=== PATIENT | female | born 1970 | race Caucasian/White ===

== ENCOUNTER 2016-11-16 19:21 | Inpatient (IN) ==
[2016-11-16] MEDS ORDERED: ASPIRIN 325 MG TABLET PO STA (19:41)
[2016-11-16] MEDS ORDERED: METOCLOPRAMIDE 10 MG/2 ML VIAL IV STA (19:41)
[2016-11-16] MEDS ORDERED: PANTOPRAZOLE 40 MG VIAL IV STA (19:41)
[2016-11-16] MEDS ORDERED: ONDANSETRON 4 MG/2 ML VIAL IV STA (19:41)
[2016-11-16] MEDS ORDERED: KETOROLAC 30 MG/1 ML VIAL IV STA (19:41)
--- NOTE | 2016-11-16 19:46 | Emergency Department Note ---
Arrival - Arrival Chief Complaint: Chest Pain Stated Complaint: chest pain ED Nursing Triage Note: C/O Chest pain- stabbing pain under left breast radiating down left arm with left arm numbness. 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 Pt denies SOB/Nausea /Diaphoresis. EKG obtained at time of triage Mode of Arrival: Wheelchair Limitations: No Limitations Source: Patient Time Seen by Provider: 11/16/16 19:41 - History of Present Illness HPI Narrative: This 46-year-old white female presents with complaints of onset of stabbing chest pain under her left breast suddenly while in [employer] across the [place] from the hospital. She denies any shortness of breath, nausea, vomiting , or diaphoresis in association with this. She likewise did not have a previous cardiac history. Of note she is a smoker and has been diagnosed with COPD. She denies any recent chest pain or chest discomfort in the last several days although she has had significant heartburn, belching, and water brash and states she cannot keep anything down for the last 24 hours. This is the third visit in the last month to our ER for the patient with the third different problem. Patient has an extensive medical history but states she has fired all her doctors and does not have anybody in particular she is followed by currently she has seen both Dr. Baker and Jeane in the past. Currently she is very emotional but in no acute medical distress. Onset (ago): hour(s) (Patient presents 1 hour post onset of symptoms) Date of Last Menstrual Period: Hysterectomy Allergies/Adverse Reactions: Allergies Allergy/AdvReac Type Severity Reaction Status Date / Time tapentadol [From Nucynta] AdvReac Severe RASH Verified 10/22/16 12:37 Home Medications: Home Medications Medication Instructions Recorded Confirmed Type Levothyroxine Sodium 75 mcg PO QAM 09/24/14 11/16/16 History Divalproex [Depakote] 1,000 mg PO BID 10/01/14 11/16/16 History Duloxetine HCl [Cymbalta] 60 mg PO QAM 10/01/14 11/16/16 History traZODone [Desyrel] 100 mg PO BEDTIME 10/01/14 11/16/16 History Methocarbamol [Methocarbamol] 750 mg PO TID PRN 04/23/16 11/16/16 History Oxycodone HCl/Acetaminophen 1 tablet PO QID PRN 11/16/16 11/16/16 History [Oxycodone-Acetaminophen 10-325] Review of System - Review of System 12 point system: reviewed and no additional remarkable complaints except as stated - Review of System Constitutional: Present: as per HPI Respiratory: Present: as per HPI Cardiovascular: Present: as per HPI Gastrointestinal: Present: as per HPI Psychiatric: Present: as per HPI Medical,Surgical,& Family Hx - Medical History Cardio: No history of: CHF, Hypertension Psychological: History of: Anxiety Disorders No history of: ADHD, Behavior Problems, Bipolar Disorder, Depression, Previous Suicide Attempt, Schizophrenia Neurology: History of: Seizures (LAST SEIZURE 2 YEARS AGO) HEENT: History of: Eye Problem (READING GLASSES) Endocrine: History of: Thyroid Disorder (thyroid removed 2014) Respiratory: No history of: Asthma, Bronchitis, COPD, Intubation, Obstructive Sleep Apnea , Pneumonia, Lung Cancer Comment Only: Respiratory Problems (SMOKER) Renal: Comment Only: Renal (Kidney) Cancer (L KIDNEY MASS, BIOPSY DONE 02/24/16) Gastrointestinal: History of: Gastrointestinal Cancer (rectal cancer Radiation /Chemo Dr Ching finished chemo July 2015) Musculoskeletal: History of: Amputation, Back/Neck Problems, Musculoskeletal Problems (FX T5?) Hematology: History of: Anemia No history of: Blood Transfusion Reaction Reproductive: History of: Abnormal Pap Smear, Reproductive Cancer (vulva cancer) Other: No history of: Anesthesia Reactions - Surgical History Cardiac Surgeries: Patient Denies: Cardiac Catheterization Thoracic Surgeries: Surgical HX of;: Kidney (Renal Surgery) (L kidney removed ) Patient denies;: Organ Transplant, Lobectomy Neurologic Surgeries: Patient denies: Neurologic Surgery HEENT Surgeries: Surgical HX of: Thyroid Surgery (GOITER NODULES) Patient denies: Eye Surgery, Tonsilectomy & Adenoidectomy Abdominal Surgeries: Surgical HX of: Abdominal Surgery (gallbladder removed 2014 ), Cholecystectomy Patient denies: Splenectomy Reproductive Surgeries: Surgical HX of;: Section, Dilation and Curettage, Gynecologic Surgery (VULVECTOMY), Hysterectomy (PARTIAL), Tubal Ligation Patient denies;: Genitourinary Surgery Orthopedic Surgeries: Surgical HX of;: Implanted Devices, Orthopedic Surgery ( HARWARLE L ANKLE BACK) - Family History Family History: Reports;: Family Diabetes (FATHER), Family Heart Disease (MOTHER ), Family Hypertension (MOTHER, FATHER) Denies;: Family Anesthesia Reaction, Family Cancer, Family Psychiatric Problems, Family Stroke - Social History Smoking Status: Smoker, status unknown Frequency of Alcohol Use: None Type of Drug Use: None Exam Physical Examination: GENERAL: Well developed, well nourished white female in no acute distress. HEENT: Normocephalic. No trauma. Moist mucous membranes. EOMI. PERRLA. ENT NML NECK: Supple. No adenopathy. CARDIAC: Regular. No murmurs. Heart rate 120 CHEST: Clear to auscultation. No respiratory distress. O2 sat 98% ABDOMEN: Soft. Midepigastric tenderness. Hypoactive bowel sounds. EXTREMITIES: No trauma. Normal ROM. No pedal edema. SKIN: No diaphoresis. No rash. NEURO: Alert. Neuro intact no focal deficits. Vital Signs: Vital Signs Temperature 98.6 F 11/16/16 19:29 Pulse Rate 124 H 11/16/16 19:29 Respiratory Rate 18 11/16/16 19:45 Blood Pressure 143/93 11/16/16 19:29 O2 Sat by Pulse Oximetry 98 11/16/16 19:29 Course - Reevaluation(s) Reevaluation #1: Advised patient her symptoms and laboratory support acute pancreatitis. I have advised her hospitalization. Results - Labs CBC & BMP: 11/16/16 20:22 11/16/16 20:22 Labs: I reviewed the lab and noted the low potassium and elevated lipase. - Diagnostic Findings Procedure: Chest x-ray: image reviewed by me, report reviewed by me (Normal chest) Disposition Clinical Impression: Pancreatitis Case discussed with: patient Disposition: Still a Patient Condition: Guarded Time of Disposition: 21:31
[2016-11-16] MEDS ORDERED: PANTOPRAZOLE 40 MG VIAL IV ONE (19:51)
[2016-11-16] MEDS ORDERED: ONDANSETRON 4 MG/2 ML VIAL ONE (19:51)
[2016-11-16] MEDS ORDERED: METOCLOPRAMIDE 10 MG/2 ML VIAL ONE (19:51)
[2016-11-16] MEDS ORDERED: KETOROLAC 30 MG/1 ML VIAL ONE (19:52)
[2016-11-16] MEDS ORDERED: ASPIRIN 325 MG TABLET ONE (19:52)
--- NOTE | 2016-11-16 20:01 | XRay Report ---
XR chest 2V Date: 11/16/2016 7:42 PM History: Chest pain Comparison: 05/07/2016 Technique: PA and lateral chest Findings: The heart is normal in size with stable right subclavian venous access catheter. The lungs and mediastinum are stable in appearance. Post operative findings in the thoracolumbar spine with prior fusion, left abdomen, and left mid humeral amputation. Impression: No acute cardiopulmonary pathology identified. PROCEDURE INTERPRETED AT [facility] DEPARTMENT OF RADIOLOGY Final Report Signed by: Dr. Tanya Pleitez
[2016-11-16 20:30] LABS: Basophils % 0.6 % (0.0-0.8); Eosinophils # 0.2 10*3/uL (0.0-0.87); Eosinophils % 3.1 % (0.00-10.9); Hematocrit 37.2 VOL% (35.7-47.0); Hemoglobin 12.6 GM/DL (12.0-16.0); Immature Granulocytes % 0.3 %; Immature Granulocytes Absolute 0.02 #; Lymphocytes # 1.4 10*3/uL (1.4-4.0); Mean Corpuscular HGB Conc 33.9 GM/DL (32-36); Mean Corpuscular Hemoglobin 33 PG (27-34); Mean Corpuscular Volume 98.7 FL (87-102); Mean Platelet Volume 9.4 FL (9.6-12.0); Monocytes # 0.4 10*3/uL (0.11-0.8); Monocytes % 5.6 % (1.7-12.7); Neutrophils # 5.1 10*3/uL (1.4-7.4); Neutrophils % 71.4 % (38.7-73.9); Platelet Count 309 T/CUMM (130-400); Red Blood Count 3.77 MC/CUMM (3.8-5.5); Red Cell Distribution Width 14.2 % (9.3-17.3); White Blood Count 7.1 T/CUMM (4-12)
[2016-11-16 20:33] LABS: Apearance,Urine CLEAR (Clear); Bilirubin,Urine Negative (Negative); Blood, Urine Negative (Negative); Glucose,Urine (UA) Negative (Negative); Ketones,Urine Negative (Negative); Nitrite,Urine Negative (Negative); Protein,Urine Negative; RBC,Urine <1 /HPF (0-4); Urine Color Yellow (Yellow); Urine Specific Gravity 1.009 (1.001-1.035); Urine Urobilinogen < 2.0 EU/DL (0.2-1.0); WBC,Urine <1 /HPF (0-6)
[2016-11-16] MEDS ORDERED: DICYCLOMINE 20 MG/2 ML AMP IM ONE ×2 (20:43)
[2016-11-16 20:47] LABS: Barbiturates Screen,Urine Negative (Negative); Benzodiazepines Screen,Urine Negative (Negative); Cannabinoid Screen,Urine Negative (Negative); Opiate Screen,Urine Negative (Negative); Phencyclidine Screen,Urine Negative (Negative)
[2016-11-16 20:48] LABS: Alanine Aminotransferase 27 U/L (13-56); Albumin 3.8 G/DL (3.4-5.0); Alkaline Phosphatase 112 U/L (45-117); Aspartate Amino Transferase 16 U/L (0-37); Bilirubin,Total < 0.39 MG/DL (0.2-1.0); Blood Urea Nitrogen 15 MG/DL (7-18); Calcium 9.2 MG/DL (8.5-10.1); Glucose 96 MG/DL (74-106); Osmolality,Calculated 286.8 MOS/KG (273-304); Potassium 3.4 MMOL/L (3.5-5.1); Sodium 144 MMOL/L (136-145)
[2016-11-16 20:50] LABS: Troponin I Only 0.016 NG/ML (0.00-0.045)
[2016-11-16] MEDS ORDERED: SODIUM CHLORIDE 0.9% 1,000 ML IV STA (21:31)
[2016-11-16] MEDS ORDERED: ACETAMINOPHEN 325 MG TABLET PO PRN (21:52)
[2016-11-16] MEDS ORDERED: BISACODYL 5 MG TABLET PO PRN (21:52)
[2016-11-16] MEDS ORDERED: ZALEPLON 5 MG CAPSULE PO PRN (21:52)
[2016-11-16] MEDS ORDERED: METHOCARBAMOL 750 MG TABLET PO PRN (21:59)
[2016-11-16] MEDS ORDERED: oxyCODONE/ACETAMINOPHEN 5-325 MG TABLET PO PRN (21:59)
--- NOTE | 2016-11-16 22:02 | Hospitalist History & Physical ---
Assessment and Plan (1) Dehydration Status: Acute Assessment and plan: IV fluid hydration with lactated Ringer's. Current Visit: Yes (2) Abdominal pain Status: Acute Assessment and plan: Due to pancreatitis. Current Visit: Yes Qualifiers: Abdominal location: epigastric Qualified Code(s): R10.13 - Epigastric pain (3) Pancreatitis, acute Status: Acute Assessment and plan: Consult GI. Pain control. IV fluid hydration. N.p.o. Check lipids. No history of alcohol intake. Status post cholecystectomy. Normal LFTs. Current Visit: Yes Qualifiers: Pancreatitis type: unspecified pancreatitis type (4) History of seizure disorder Status: Chronic Assessment and plan: Continue home medications Current Visit: Yes History of Present Illness Chief complaint: Abdominal/epigastric pain History of present illness: Ms. Rodriguez is a 46 year old female presents with complaints of onset of stabbing chest pain under her left breast suddenly while in [employer] across the street from the hospital. She denies any shortness of breath, nausea, vomiting, or diaphoresis in association with this. She likewise did not have a previous cardiac history. Of note she is a smoker and has been diagnosed with COPD. She denies any recent chest pain or chest discomfort in the last several days although she has had significant heartburn, belching, and water brash and states she cannot keep anything down for the last 24 hours. This is the third visit in the last month to our ER for the patient with similar problem. She is followed by Dr. Baker and Jeane in the past. Currently she is very emotional but in no acute medical distress. She reports her pain is in the upper stomach and left upper quadrant and underneath her left breast. It radiates into her back. She also reports decreased appetite over the last month and some weight loss. She denies any alcohol intake. She reports prior cholecystectomy. She denies any abdominal trauma or any new medications. She is being admitted to the hospital with a diagnosis of pancreatitis. Repeat lipase and triglyceride levels in a.m. Copious IV fluids and a GI consult. The patient's home medications have been reviewed and reconciled. Her is her power of commercial real estate attorney. She is a full code. Home Medications Medication Instructions Recorded Confirmed Type Levothyroxine Sodium 75 mcg PO QAM 09/24/14 11/16/16 History Divalproex [Depakote] 1,000 mg PO BID 10/01/14 11/16/16 History Duloxetine HCl [Cymbalta] 60 mg PO QAM 10/01/14 11/16/16 History traZODone [Desyrel] 100 mg PO BEDTIME 10/01/14 11/16/16 History Methocarbamol [Methocarbamol] 750 mg PO TID PRN 04/23/16 11/16/16 History Oxycodone HCl/Acetaminophen 1 tablet PO QID PRN 11/16/16 11/16/16 History [Oxycodone-Acetaminophen 10-325] Allergies Allergy/AdvReac Type Severity Reaction Status Date / Time tapentadol [From Nucynta] AdvReac Severe RASH Verified 10/22/16 12:37 Medical,Surgical,& Family Hx - Medical History Cardio: No history of: CHF, Hypertension Psychological: History of: Anxiety Disorders No history of: ADHD, Behavior Problems, Bipolar Disorder, Depression, Previous Suicide Attempt, Schizophrenia Neurology: History of: Seizures (LAST SEIZURE 2 YEARS AGO) HEENT: History of: Eye Problem (READING GLASSES) Endocrine: History of: Thyroid Disorder (thyroid removed 2014) Respiratory: No history of: Asthma, Bronchitis, COPD, Intubation, Obstructive Sleep Apnea , Pneumonia, Lung Cancer Comment Only: Respiratory Problems (SMOKER) Renal: Comment Only: Renal (Kidney) Cancer (L KIDNEY MASS, BIOPSY DONE 02/24/16) Gastrointestinal: History of: Gastrointestinal Cancer (rectal cancer Radiation /Chemo Dr Ching finished chemo July 2015) Musculoskeletal: History of: Amputation, Back/Neck Problems, Musculoskeletal Problems (FX T5?) Hematology: History of: Anemia No history of: Blood Transfusion Reaction Reproductive: History of: Abnormal Pap Smear, Reproductive Cancer (vulva cancer) Other: No history of: Anesthesia Reactions - Surgical History Cardiac Surgeries: Patient Denies: Cardiac Catheterization Thoracic Surgeries: Surgical HX of;: Kidney (Renal Surgery) (L kidney removed ) Patient denies;: Organ Transplant, Lobectomy Neurologic Surgeries: Patient denies: Neurologic Surgery HEENT Surgeries: Surgical HX of: Thyroid Surgery (GOITER NODULES) Patient denies: Eye Surgery, Tonsilectomy & Adenoidectomy Abdominal Surgeries: Surgical HX of: Abdominal Surgery (gallbladder removed 2014 ), Cholecystectomy Patient denies: Splenectomy Reproductive Surgeries: Surgical HX of;: Section, Dilation and Curettage, Gynecologic Surgery (VULVECTOMY), Hysterectomy (PARTIAL), Tubal Ligation Patient denies;: Genitourinary Surgery Orthopedic Surgeries: Surgical HX of;: Implanted Devices, Orthopedic Surgery ( HARWARLE L ANKLE BACK) - Family History Family History: Reports;: Family Diabetes (FATHER), Family Heart Disease (MOTHER ), Family Hypertension (MOTHER, FATHER) Denies;: Family Anesthesia Reaction, Family Cancer, Family Psychiatric Problems, Family Stroke - Social History Smoking Status: Smoker, status unknown Have you smoked in the last 12 months: Yes Frequency of Alcohol Use: None Type of Drug Use: None Marital Status: Lives With:: Spouse Functional capacity: independent ambulation 12 point system: reviewed and no additional remarkable complaints except as stated - Constitutional Constitutional: Present: weight loss - Gastrointestinal Gastrointestinal: Present: early satiety Exam - Constitutional Vitals: Period Temp Pulse Resp BP Sys/Pham Pulse Ox Last 24 Hr 98.6 F 124 18-18 143/93 98 Exam: Constitutional System: Mild distress. No tremulousness. Patient is pleasant and cooperative. Alert awake and oriented 3. Head: Normocephalic, atraumatic. Ears, Nose and Throat System: No pain or tenderness. No epistaxis or discharge Eyes System: Pupils equal, round, and reactive. Extraocular muscles intact. Neck: Supple, without adenopathy, No jugular venous distention. No thyromegaly, neck mass, or prior surgery apparent. Respiratory System: Chest clear to auscultation. Cardiovascular System: Heart with regular rate and rhythm. No murmur. GI System: Abdomen soft, tender in the epigastric area. Normo active bowel sounds present. Pain radiates to the back Musculoskeletal System: limbs with no pedal edema. Full distal pulses. Left upper extremity amputation noted Neurological System: No discernable sensory deficit. No aphasia Psychiatric System: Conversation is rational Results - Labs CBC & BMP: 11/16/16 20:22 11/16/16 20:22 Lab Results: I have reviewed the past 24 hour labs - Diagnostic Findings Procedure: Chest x-ray: image reviewed by me, report reviewed by me
[2016-11-16] MEDS ORDERED: CLORAZEPATE 3.75 MG TABLET PO PRN (22:09)
[2016-11-16] MEDS: MORPHINE 2 MG/1 ML SYRINGE IV PRN (22:21)
[2016-11-16] MEDS ORDERED: MORPHINE 2 MG/1 ML SYRINGE ONE (22:22)
[2016-11-16] MEDS: LACTATED RINGERS 1,000 ML IV SCH (23:15)
[2016-11-16] MEDS: ENOXAPARIN 40 MG/0.4 ML SYRINGE SUBCUT SCH (23:15)
[2016-11-16] MEDS: MEROPENEM 1,000 MG in SODIUM CHLORIDE 0.9% 100 ML IV SCH (23:36)
[2016-11-17] MEDS: MORPHINE 2 MG/1 ML SYRINGE IV PRN ×4 (03:11→21:58)
--- NOTE | 2016-11-17 04:13 | EKG Report ---
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
[2016-11-17] MEDS: LACTATED RINGERS 1,000 ML IV SCH ×4 (05:30→22:41)
[2016-11-17 06:54] LABS: Bilirubin,Total 0.4 MG/DL (0.2-1.0); Magnesium 1.7 MG/DL (1.8-2.4); Osmolality,Calculated 289.7 MOS/KG (273-304); Potassium 3.7 MMOL/L (3.5-5.1); Risk Ratio 3.33; Total Protein 5.6 G/DL (6.4-8.3); VLDL CHOLESTEROL 25.8 MG/DL
[2016-11-17] MEDS: MEROPENEM 1,000 MG in SODIUM CHLORIDE 0.9% 100 ML IV SCH ×2 (07:08→22:06)
[2016-11-17] MEDS ORDERED: PANTOPRAZOLE 40 MG TABLET PO SCH (09:00)
[2016-11-17] MEDS: DULoxetine 30 MG CAPSULE PO SCH (09:03)
[2016-11-17] MEDS: DIVALPROEX 500 MG TABLET PO SCH ×2 (09:04→21:59)
[2016-11-17] MEDS: LEVOTHYROXINE 75 MCG TABLET PO SCH (09:05)
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
[2016-11-17] MEDS: ONDANSETRON 4 MG/2 ML VIAL IV PRN ×2 (10:28→18:09)
--- NOTE | 2016-11-17 17:11 | Gastrointestinal Consult Note ---
Assessment and Plan (1) Abdominal pain Status: Acute Assessment and plan: Episodic postprandial epigastric pain over the last 1-2 months associated with weight loss per patient's history. Peptic ulcer disease would be consideration. Also consider underlying malignancy. Her presentation not suggestive of acute pancreatitis and lipase elevation not diagnostic for that either. Would continue with PPI therapy for now. If no cardiac issues noted and she can tolerate diet, patient could be discharged from my standpoint and would plan EGD as outpatient in the next week or so. Current Visit: Yes Qualifiers: Abdominal location: epigastric Qualified Code(s): R10.13 - Epigastric pain History of Present Illness Chief complaint: Upper abdominal pain and nausea History of present illness: Ms. Rodriguez is a 46 year old female with prior history of squamous cell carcinoma of the anus, vulvar cancer and previous renal cell carcinoma is admitted with an episode of chest pain that occurred yesterday afternoon. This was localized into her left chest and was severe she says. Cardiac evaluation for this is been negative to this point. Patient states that over the last couple months she has had daily episodes of epigastric pain and nausea after meals. She reports having lost 15 pounds weight with this. She denies vomiting or gross GI bleeding. Diarrhea has occurred sporadically since onset of this with most of her bowel movements being normal. She has had previous cholecystectomy. On admission her lipase was mildly elevated to approximately 500. Liver tests were normal. Home Medications Medication Instructions Recorded Confirmed Type Levothyroxine Sodium 75 mcg PO QAM 09/24/14 11/16/16 History Divalproex [Depakote] 1,000 mg PO BID 10/01/14 11/16/16 History Duloxetine HCl [Cymbalta] 60 mg PO QAM 10/01/14 11/16/16 History traZODone [Desyrel] 100 mg PO BEDTIME 10/01/14 11/16/16 History Methocarbamol [Methocarbamol] 750 mg PO TID PRN 04/23/16 11/16/16 History Oxycodone HCl/Acetaminophen 1 tablet PO QID PRN 11/16/16 11/16/16 History [Oxycodone-Acetaminophen 10-325] Allergies Allergy/AdvReac Type Severity Reaction Status Date / Time tapentadol [From Nucynta] AdvReac Severe RASH Verified 06/04/17 12:37 Medical,Surgical,& Family Hx - Medical History Cardio: No history of: CHF, Hypertension Psychological: History of: Anxiety Disorders No history of: ADHD, Behavior Problems, Bipolar Disorder, Depression, Previous Suicide Attempt, Schizophrenia Neurology: History of: Seizures (LAST SEIZURE 2 YEARS AGO) HEENT: History of: Eye Problem (READING GLASSES) Endocrine: History of: Thyroid Disorder (thyroid removed 2014) Respiratory: No history of: Asthma, Bronchitis, COPD, Intubation, Obstructive Sleep Apnea , Pneumonia, Lung Cancer Comment Only: Respiratory Problems (SMOKER) Renal: Comment Only: Renal (Kidney) Cancer (L KIDNEY MASS, BIOPSY DONE 02/24/16) Genitourinary: History of: Genitourinary Cancer (Renal cell carcinoma resected in 2015 with nephrectomy) Gastrointestinal: History of: 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) Musculoskeletal: History of: Amputation, Back/Neck Problems, Musculoskeletal Problems (FX T5?) Hematology: History of: Anemia No history of: Blood Transfusion Reaction Reproductive: History of: Abnormal Pap Smear, Reproductive Cancer (vulvar CA) Other: No history of: Anesthesia Reactions - Surgical History Cardiac Surgeries: Patient Denies: Cardiac Catheterization Thoracic Surgeries: Surgical HX of;: Kidney (Renal Surgery) (L kidney removed ) Patient denies;: Organ Transplant, Lobectomy Neurologic Surgeries: Patient denies: Neurologic Surgery HEENT Surgeries: Surgical HX of: Thyroid Surgery (GOITER NODULES) Patient denies: Eye Surgery, Tonsilectomy & Adenoidectomy Abdominal Surgeries: Surgical HX of: Abdominal Surgery (gallbladder removed 2014 ), Cholecystectomy Patient denies: Splenectomy Reproductive Surgeries: Surgical HX of;: Section, Dilation and Curettage, Gynecologic Surgery (VULVECTOMY), Hysterectomy (PARTIAL), Tubal Ligation Patient denies;: Genitourinary Surgery Orthopedic Surgeries: Surgical HX of;: Implanted Devices, Orthopedic Surgery ( HARWARLE L ANKLE BACK) - Family History Family History: Reports;: Family Diabetes (FATHER), Family Heart Disease (MOTHER ), Family Hypertension (MOTHER, FATHER) Denies;: Family Anesthesia Reaction, Family Cancer, Family Psychiatric Problems, Family Stroke - Social History Smoking Status: Smoker, status unknown Frequency of Alcohol Use: None Type of Drug Use: None - Constitutional Constitutional: Present: weight loss. Absent: chills, fever(s), night sweats - EENT Nose, mouth and throat: Absent: epistaxis - Cardiovascular Cardiovascular: Absent: chest pain with activity, orthopnea, PND - Respiratory Respiratory: Absent: cough, hemoptysis - Gastrointestinal Gastrointestinal: Present: abdominal pain, nausea. Absent: early satiety, hematemesis, hematochezia, vomiting - Genitourinary Genitourinary: Absent: dysuria, flank pain, hematuria - Neurological Neurological: Absent: abnormal gait, abnormal speech, focal weakness - Hematologic/Lymphatic Hematologic/Lymphatic: Absent: easy bleeding, easy bruising Exam - Constitutional Vitals: Period Temp Pulse Resp BP Sys/Pham Pulse Ox Last 24 Hr 97.3 F-98.9 F 71-124 16-22 108-143/70-95 92-100 General appearance: no acute distress, over weight - Head Head exam: Present: normocephalic, atraumatic - Eye Eye exam: Absent: scleral icterus Pupils: Present: normal accommodation - Respiratory Respiratory exam: Present: clear to auscultation bilaterally. Absent: wheezes - Cardiovascular Cardiovascular exam: Present: regular rate and rhythm. Absent: gallop, rubs - GI/Abdominal GI/Abdominal exam: Present: normal bowel sounds, tenderness (Mild epigastric), soft. Absent: distended, mass, organomegaly - Extremities Exam Extremities exam: Absent: calf tenderness, edema - Neurological Exam Neurological exam: Present: alert, oriented X3, CN II-XII intact. Absent: motor sensory deficit - Psychiatric Psychiatric exam: Present: normal affect, normal mood - Skin Skin exam: Present: normal color, warm, dry Results - Labs CBC & BMP: 11/16/16 20:22 11/17/16 06:00 Lab Results: I have reviewed the past 24 hour labs
[2016-11-17] MEDS: ENOXAPARIN 40 MG/0.4 ML SYRINGE SUBCUT SCH (21:58)
[2016-11-17] MEDS: PANTOPRAZOLE 40 MG TABLET PO SCH (22:01)
[2016-11-18] MEDS: LACTATED RINGERS 1,000 ML IV SCH ×2 (04:29→10:18)
[2016-11-18] MEDS: MORPHINE 2 MG/1 ML SYRINGE IV PRN (06:12)
[2016-11-18 07:59] VITALS: BP 145/81
[2016-11-18] MEDS: PANTOPRAZOLE 40 MG TABLET PO SCH (08:17)
[2016-11-18] MEDS: DULoxetine 30 MG CAPSULE PO SCH (08:18)
[2016-11-18] MEDS: LEVOTHYROXINE 75 MCG TABLET PO SCH (08:18)
[2016-11-18] MEDS: DIVALPROEX 500 MG TABLET PO SCH (08:18)
[2016-11-18] MEDS: MEROPENEM 1,000 MG in SODIUM CHLORIDE 0.9% 100 ML IV SCH (08:20)
--- NOTE | 2016-11-18 09:47 | Discharge Summary ---
Hospital Course - Hospital Course Hospital Course: Discharge diagnosis: Abdominal pain, possibly ulcer disease The patient presented to the hospital for evaluation of some abdominal pain. She had a mildly elevated lipase, and was admitted for treatment of pancreatitis. She did not appear to have pancreatitis clinically. She has had a couple of CT scans of the abdomen over the past month or so to evaluate the pain, and there have been no structural abnormalities noted. GI saw the patient in consultation, and recommended outpatient and recommended outpatient endoscopic evaluation. The patient is agreeable with this. We will let her go home. Medication reconciliation has been performed. Diet as tolerated. Activity as tolerated. She will call GI next week to arrange endoscopy. This note was completed using [employer] voice recognition software. There may be cement handler errors as a result. Diagnosis - Discharge Diagnosis (1) Abdominal pain Status: Acute Discharge Plan - Discharge Data Disposition: Disch To Home/Self Care Condition at Discharge: Stable Discharge Diet: advance to your usual diet Activity: resume usual activities as tolerated Hygiene: no restrictions Weight Bearing at Discharge: full weight bearing Driving: no restrictions - Discharge Medications New Pantoprazole Tab [Protonix Tab] 40 mg PO DAILY #30 tablet Continue Levothyroxine Sodium 75 mcg PO QAM Divalproex [Depakote] 1,000 mg PO BID Duloxetine HCl [Cymbalta] 60 mg PO QAM traZODone [Desyrel] 100 mg PO BEDTIME Methocarbamol 750 mg PO TID PRN PRN Reason: Spasms Oxycodone HCl/Acetaminophen [Oxycodone-Acetaminophen 10-325] 1 tablet PO QID PRN #14 tablet PRN Reason: Pain - Follow Up or Referral - Forms/Instructions Exam - Constitutional Vitals: Period Temp Pulse Resp BP Sys/Pham Pulse Ox Last 24 Hr 97.3 F-98.9 F 69-77 18-22 121-165/64-92 95-99 Vital signs are noted above. Heart is regular with distant tones and no murmur. Chest is fairly clear. Abdomen is slightly protuberant with positive bowel sounds and no mass. She is awake and alert DS: Provider Date of admission: 11/16/16 21:54 Primary care physician: Filiberto Copeland MD Attending physician on admission: Isrrael Jimenez MD Consults: 11/16/16 21:52 Consult to Physician [CONS] Routine Comment: pancreatitis Consulting Provider: Juice Baker Person Notified: MELCHOR GARCIA Date Notified: 11/17/16 Time Notified: 09:15 Consult Notification Comment: [facility] IS OUT OF TOWN [facility] Discharging clinician: Law Lanza MD Expected date of discharge: 11/18/16
--- NOTE | 2016-11-22 08:29 | Physician Query Form ---
CLICK EDIT DOCUMENT TO SELECT QUERY ANSWER --> OK --> SIGN Sharon Cortes RN Clinical Manufacturing Maintenance Manager W) [phone] (f) [phone] [email or web address]: Make your selection(s) from the choices in EACH section by typing an "x" and enter comments in the comment section. Please use your independent medical judgment in providing your response. This request does not imply that any particular answer is desired or expected. CLINICAL INDICATORS: (Providers should not edit this section) Based on documentation of "Acute abdominal pain" "Possibly ulcer disease" "Peptic ulcer disease would be a consideration" "Also consider underlying malignancy" "GI saw the patient in consultation, and recommended outpatient and recommended outpatient endoscopic evaluation." Please specify reason for acute abdominal pain Based on the above, could you clarify the appropriate diagnosis, if significant , that supports the above abnormalities and additional evaluation, monitoring, and/or treatment rendered: ( ) Acute Abdominal Pain Likely due to Acute Peptic Ulcer ( ) Acute Abdominal Pain Likely due to Underlying Malignancy ( ) Acute Abdominal Pain Likely due to (please specify) ( ) Other, please specify: ( X) Clinically unable to determine COMMENTS: PLEASE ALSO DOCUMENT RESPONSE IN PROGRESS NOTES AND/OR DISCHARGE SUMMARY Use of terms such as suspected, likely, or probable (associated with a specific diagnosis that is being evaluated, monitored, or treated as if it exists) are acceptable and can be restated in the discharge summary if not ruled out. MTDD
== END 2016-11-18 10:37 | disposition home or self-care (01) | DRG 384 ==
LOC: N.ED 19:21 → N.EDINP 21:54 → SUATTDRO 21:54 → N.2E 22:33
PROVIDERS: ADMIT Family Medicine; ATTEND Internal Medicine Geriatric Medicine

== ENCOUNTER 2016-12-25 11:18 | Inpatient (IN) ==
[2016-12-25] MEDS ORDERED: SODIUM CHLORIDE 0.9% 1,000 ML IV STA (12:52)
[2016-12-25] MEDS ORDERED: MORPHINE 2 MG/1 ML SYRINGE IV STA (12:53)
[2016-12-25] MEDS ORDERED: ONDANSETRON 4 MG/2 ML VIAL IV STA (12:53)
[2016-12-25] MEDS ORDERED: ONDANSETRON 4 MG/2 ML VIAL ONE ×2 (12:59→16:18)
[2016-12-25] MEDS ORDERED: MORPHINE 2 MG/1 ML SYRINGE ONE ×3 (12:59→16:19)
[2016-12-25 13:30] LABS: Apearance,Urine CLEAR (Clear); Bilirubin,Urine Negative (Negative); Blood, Urine Small mg/dL (Negative); Glucose,Urine (UA) Negative (Negative); Hyaline Casts,Urine 1 /LPF (0-3); Ketones,Urine Negative (Negative); Mucus,Urine Occasional /LPF (Occasional); Nitrite,Urine Negative (Negative); Protein,Urine Negative; RBC,Urine 1 /HPF (0-4); Squamous Epithelial Cell,Urine Occasional /HPF (0-10); Urine Color Yellow (Yellow); Urine Specific Gravity 1.018 (1.001-1.035); Urine Urobilinogen < 2.0 EU/DL (0.2-1.0); WBC,Urine 1 /HPF (0-6)
[2016-12-25 13:36] LABS: Hematocrit 36.7 VOL% (35.7-47.0); Hemoglobin 12.5 GM/DL (12.0-16.0); Mean Corpuscular HGB Conc 34.1 GM/DL (32-36); Mean Corpuscular Hemoglobin 33 PG (27-34); Mean Corpuscular Volume 95.6 FL (87-102); Red Blood Count 3.84 MC/CUMM (3.8-5.5); White Blood Count 6.3 T/CUMM (4-12)
[2016-12-25 13:37] LABS: Basophils % 0.6 % (0.0-0.8); Eosinophils # 0.2 10*3/uL (0.0-0.87); Eosinophils % 2.5 % (0.00-10.9); Immature Granulocytes % 0.5 %; Immature Granulocytes Absolute 0.03 #; Lymphocytes # 1.2 10*3/uL (1.4-4.0); Lymphocytes % 19.2 % (21.3-54.2); Mean Platelet Volume 9.2 FL (9.6-12.0); Monocytes # 0.4 10*3/uL (0.11-0.8); Monocytes % 5.7 % (1.7-12.7); Neutrophils # 4.5 10*3/uL (1.4-7.4); Neutrophils % 71.5 % (38.7-73.9); Platelet Count 495 T/CUMM (130-400)
[2016-12-25 13:53] LABS: Albumin 3.9 G/DL (3.4-5.0); Bilirubin,Total 0.4 MG/DL (0.2-1.0); Calcium 9.6 MG/DL (8.5-10.1); Osmolality,Calculated 280.7 MOS/KG (273-304); Potassium 4.3 MMOL/L (3.5-5.1); Total Protein 7.7 G/DL (6.4-8.3)
--- NOTE | 2016-12-25 14:38 | CT Report ---
CT abdomen pelvis w con Indication: Left back and flank pain. History of renal cancer, vulvar cancer, and rectal cancer. Comparison: CT abdomen and pelvis 10/25/2016. Technique: CT of the abdomen and pelvis was performed following administration of intravenous contrast. The CT examination was performed using one or more of the following dose reduction techniques: Automatic exposure control, adjustment of the mA and kV according to patient size, or iterative reconstruction techniques. Findings: Small pleural-based focus of linear to curvilinear attenuation within the posterior lateral right lower lobe image #6 is stable when compared to the previous study and may reflect scarring. Lungs otherwise are clear. No pleural effusions are present. Partially imaged Mehta rods are present within the lower thoracic spine and extend throughout the lumbar spine. Streak artifact blurs a portion of the central liver. No focal hepatic masses are demonstrated. Gallbladder surgically absent. The extrahepatic bile duct is dilated. This finding is considered nonspecific in the setting of prior cholecystectomy. The spleen and pancreas demonstrate no evidence of acute pathology. The adrenal glands demonstrate little change from comparison. Left adrenal nodule is stable in size and measures 18 to 19 mm transverse dimension. Attenuation characteristics are indeterminate for adenoma. The left kidney is surgically absent. There is no evidence of adenopathy or recurrent mass within the left renal fossa. The right kidney demonstrates no evidence of acute pathology. Aorta and inferior vena cava demonstrate no acute findings. Stomach and duodenum demonstrate no acute findings. Small bowel demonstrates no significant abnormality. Large bowel is not well distended. A few scattered diverticula are suggested in the descending colon. No acute findings are suggested. No adenopathy is noted within abdomen or pelvis. Osseous structures are stable compared to previous study. Possible bone graft involving the lateral aspect of the right iliac wing is present. Multilevel posterior fusion of the lumbar and thoracic spine again is demonstrated. Soft tissues and musculature of the body wall demonstrate no acute findings. Impression: 1. No findings are present to suggest etiology of provided symptoms. 2. Stable appearance of the abdomen and pelvis compared to prior study. 3. Stable postoperative appearance of the thoracolumbar spine. 12/25/2016 2:21 PM PROCEDURE INTERPRETED AT [facility] DEPARTMENT OF RADIOLOGY Final Report Signed by: Dr. Fernando Padilla
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
[2016-12-25] MEDS: ONDANSETRON 4 MG/2 ML VIAL IV PRN ×2 (16:23→23:42)
[2016-12-25] MEDS ORDERED: PIPERACILLIN/TAZOBACTAM 3,375 MG in SODIUM CHLORIDE 0.9% 100 ML IV SCH (16:30)
[2016-12-25] MEDS ORDERED: MORPHINE 2 MG/1 ML SYRINGE IV SCH (16:30)
[2016-12-25] MEDS: MORPHINE 2 MG/1 ML SYRINGE IV SCH ×2 (17:27→20:41)
[2016-12-25] MEDS: FAMOTIDINE 20 MG/2 ML VIAL IV SCH (17:28)
[2016-12-25] MEDS: SODIUM CHLORIDE 0.9% 1,000 ML IV SCH ×2 (17:29→22:10)
[2016-12-25] MEDS ORDERED: VALPROIC ACID INJ 1,000 MG in SODIUM CHLORIDE 0.9% 100 ML IV SCH (18:00)
[2016-12-25] MEDS: DIVALPROEX 500 MG TABLET PO SCH (20:40)
[2016-12-25] MEDS: traZODone 50 MG TABLET PO SCH (20:41)
[2016-12-26] MEDS: MORPHINE 2 MG/1 ML SYRINGE IV SCH ×6 (00:30→21:55)
[2016-12-26] MEDS: SODIUM CHLORIDE 0.9% 1,000 ML IV SCH ×5 (04:21→21:55)
[2016-12-26] MEDS ORDERED: LEVOTHYROXINE 100 MCG VIAL IV SCH (07:00)
[2016-12-26 08:22] LABS: Basophils % 0.5 % (0.0-0.8); Eosinophils # 0.4 10*3/uL (0.0-0.87); Eosinophils % 5.7 % (0.00-10.9); Hematocrit 30.9 VOL% (35.7-47.0); Immature Granulocytes % 0.5 %; Immature Granulocytes Absolute 0.03 #; Lymphocytes # 1.5 10*3/uL (1.4-4.0); Lymphocytes % 24.9 % (21.3-54.2); Mean Corpuscular Hemoglobin 33 PG (27-34); Mean Corpuscular Volume 97.5 FL (87-102); Mean Platelet Volume 9.2 FL (9.6-12.0); Monocytes # 0.4 10*3/uL (0.11-0.8); Monocytes % 6.4 % (1.7-12.7); Neutrophils # 3.8 10*3/uL (1.4-7.4); Platelet Count 408 T/CUMM (130-400); Red Blood Count 3.17 MC/CUMM (3.8-5.5); Red Cell Distribution Width 13.7 % (9.3-17.3); White Blood Count 6.1 T/CUMM (4-12)
[2016-12-26 08:23] LABS: Hemoglobin 10.5 GM/DL (12.0-16.0)
[2016-12-26 08:40] LABS: Albumin 3.3 G/DL (3.4-5.0); Bilirubin,Total 0.8 MG/DL (0.2-1.0); Calcium 8.6 MG/DL (8.5-10.1); Magnesium 1.8 MG/DL (1.8-2.4); Osmolality,Calculated 279.4 MOS/KG (273-304); Potassium 4.5 MMOL/L (3.5-5.1); Total Protein 6.4 G/DL (6.4-8.3)
[2016-12-26] MEDS: ONDANSETRON 4 MG/2 ML VIAL IV PRN (09:18)
[2016-12-26] MEDS: NICOTINE 21 MG/24 HR PATCH TRANSDERM SCH (09:19)
[2016-12-26] MEDS: DULoxetine 30 MG CAPSULE PO SCH (09:20)
[2016-12-26] MEDS: LEVOTHYROXINE 100 MCG TABLET PO SCH (09:20)
[2016-12-26] MEDS: DIVALPROEX 500 MG TABLET PO SCH ×2 (09:20→21:55)
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
--- NOTE | 2016-12-26 13:58 | Physician Query Form ---
CLICK EDIT DOCUMENT TO SELECT QUERY ANSWER --> OK --> SIGN Sharon Cortes RN Clinical [facility] W) [phone] (f) [phone] [email or web address] PROVIDERS: Make your selection(s) from the choices in EACH section by typing an "x" and enter comments in the comment section. Please use your independent medical judgment in providing your response. This request does not imply that any particular answer is desired or expected. CLINICAL INDICATORS: (Providers should not edit this section) Based on documentation of "Dehydration" "Very little fluid or food intake due to nausea" History of renal cell cancer with nephrectomy. Creatinine this admission from 1.8 to 1.4. GFR from 33 to 45. Treated with NS bolus followed by NS infusion. Clarify which of the following most accurately represents the patient's renal status: ( ) Acute kidney injury (non-traumatic) ( ) Acute renal failure x( ) Acute renal failure with underlying Chronic Kidney Disease (CKD) - please provide stage below ( ) Acute renal failure with pathological renal lesion ( ) Acute renal failure with necrosis ( ) tubular ( ) medullary ( ) cortical ( ) CKD - please provide stage below ( ) End Stage Renal Disease ( ) Acute interstitial nephritis ( ) Hepatorenal syndrome ( ) Other, please specify: ( ) Clinically unable to determine Chronic Kidney Disease Stages Source: National Kidney Disease Foundation ( ) Stage I (eGFR > or = 90) ( ) Stage II (eGFR 60 - 89) (x ) Stage III (eGFR 30 - 59) ( ) Stage IV (eGFR 15 - 29) ( ) Stage V (eGFR < 15 or dialysis) COMMENTS: PLEASE ALSO DOCUMENT RESPONSE IN PROGRESS NOTES AND/OR DISCHARGE SUMMARY Use of terms such as suspected, likely, or probable (associated with a specific diagnosis that is being evaluated, monitored, or treated as if it exists) are acceptable and can be restated in the discharge summary if not ruled out. MTDD
--- NOTE | 2016-12-26 14:27 | Hospitalist Progress Note ---
Assessment and Plan (1) Abdominal pain Status: Acute Assessment and plan: GI wants to do an EGD in am. History of pancreatitis 2 over the last 10 months with mildly elevated lipase levels now normalized. No findings on CT scan at this time to support pancreatitis. consider pain management consult Follow GI's recommendations Current Visit: Yes Qualifiers: Abdominal location: epigastric Qualified Code(s): R10.13 - Epigastric pain (2) History of seizure disorder Status: Chronic Assessment and plan: continue with Depakote, will get levels. Current Visit: No (3) Hypothyroidism Status: Acute Assessment and plan: continue with supplements Current Visit: Yes Hospitalist: Subjective Interval history: Patient was complaining about pain and she is requesting for more pain meds. Exam - Constitutional Vitals: Period Temp Pulse Resp BP Sys/Pham Pulse Ox Last 24 Hr 96.7 F-98.5 F 87-116 15-20 112-147/77-92 95-100 General appearance: no acute distress - Head Head exam: Present: normal inspection - Respiratory Respiratory exam: Present: clear to auscultation bilaterally - Cardiovascular Cardiovascular exam: Present: regular rate and rhythm - GI/Abdominal GI/Abdominal exam: Present: normal bowel sounds - Extremities Exam Extremities exam: Present: other (left arm amputated) - Neurological Exam Neurological exam: Present: alert, oriented X3 Results - Labs CBC & BMP: 12/26/16 07:56 12/26/16 07:56 Lab Results: I have reviewed the past 24 hour labs
[2016-12-26] MEDS: FAMOTIDINE 20 MG/2 ML VIAL IV SCH (17:49)
[2016-12-26] MEDS: traZODone 50 MG TABLET PO SCH (21:54)
[2016-12-27] MEDS: SODIUM CHLORIDE 0.9% 1,000 ML IV SCH (03:15)
[2016-12-27] MEDS: MORPHINE 2 MG/1 ML SYRINGE IV SCH ×4 (03:15→14:02)
[2016-12-27 06:20] LABS: Basophils % 0.9 % (0.0-0.8); Eosinophils # 0.3 10*3/uL (0.0-0.87); Eosinophils % 6.5 % (0.00-10.9); Hematocrit 30.2 VOL% (35.7-47.0); Hemoglobin 10.1 GM/DL (12.0-16.0); Immature Granulocytes % 0.5 %; Immature Granulocytes Absolute 0.02 #; Lymphocytes # 0.9 10*3/uL (1.4-4.0); Lymphocytes % 19.1 % (21.3-54.2); Mean Corpuscular HGB Conc 33.4 GM/DL (32-36); Mean Corpuscular Hemoglobin 33 PG (27-34); Mean Corpuscular Volume 97.4 FL (87-102); Mean Platelet Volume 9.1 FL (9.6-12.0); Monocytes # 0.2 10*3/uL (0.11-0.8); Monocytes % 5.4 % (1.7-12.7); Neutrophils % 67.6 % (38.7-73.9); Platelet Count 366 T/CUMM (130-400); Red Cell Distribution Width 13.6 % (9.3-17.3); White Blood Count 4.4 T/CUMM (4-12)
[2016-12-27 06:51] LABS: Calcium 8.4 MG/DL (8.5-10.1); Osmolality,Calculated 284.1 MOS/KG (273-304); Potassium 4.5 MMOL/L (3.5-5.1)
[2016-12-27] MEDS: ONDANSETRON 4 MG/2 ML VIAL IV PRN (09:38)
[2016-12-27] MEDS ORDERED: LIDOCAINE 1% 5 ML VIAL ONE (12:36)
[2016-12-27] MEDS ORDERED: PROPOFOL 200 MG/20 ML VIAL IV ONE (12:36)
--- NOTE | 2016-12-27 12:36 | History and Physical Update ---
History and Physical Update - History and Physical H&P was reviewed, the patient examined and there: are no changes in the patients condition since last H&P was completed. - Physical Exam Mental Status: alert and oriented Heart: regular rate and rhythm Lung: clear to auscultation Abdomen: within normal limits Vitals: within normal limits
--- NOTE | 2016-12-27 12:48 | Anesthesia Post-Op ---
Anesthesia Post OP - Post Ansesthetic Evaluation Patient seen in post op: Yes Resp: within normal limits CV: within normal limits Mental: within normal limits Temp: within normal limits [id number]: within normal limits Nausea and Vomiting: within normal limits Pain: within normal limits
--- NOTE | 2016-12-27 12:49 | Operative Note ---
Date of procedure: 12/27/16 Pre-op diagnosis: Epigastric pain, nausea, weight loss Procedure: Procedure: Esophagogastroduodenoscopy Brief clinical abstract: 46-year-old female is admitted with recent increased epigastric pain and nausea. She has had 2 previous episodes similarly with diagnosis of acute pancreatitis in the last year. This admission her lipase was mildly elevated but pancreas appears normal on CT. She has lost over 30 pounds weight in the last year. She has off and on episodes of upper abdominal pain and nausea. She denies difficulty swallowing. Indication for procedure: Epigastric pain, weight loss Endoscopic findings:[After informed consent was obtained, the patient was placed in the left lateral decubitus position. The gastroscope was inserted in the upper esophagus under direct vision with no resistance encountered. Esophageal mucosa appeared normal with squamocolumnar junction sharply demarcated at the diaphragmatic indentation. No erosions or ulcerations were seen. The endoscope was advanced in the stomach which was carefully examined including retroflexed view of the cardia and fundus with no abnormalities noted. The pyloric channel, duodenal bulb, second and third portion of the duodenum appeared normal. The endoscope was removed and patient appeared to tolerate procedure well. Impression: Normal EGD Recommendations: Would give trial of low-dose amitriptyline for upper abdominal pain empirically for possible functional dyspepsia. If symptoms persisted on that, would consider gastric emptying scan. Would not use narcotics for her chronic upper abdominal pain. Could advance diet today and discharge if tolerates. Anesthesia: MAC Surgeon / Physician: Juice Baker Estimated blood loss: none Specimens: none sent Condition: stable Disposition: post procedure unit Results - Labs CBC & BMP: 12/27/16 05:58 12/27/16 05:58 Discharge Plan - Discharge Medications No Action Divalproex [Depakote] 1,000 mg PO BID Duloxetine HCl [Cymbalta] 60 mg PO QAM traZODone [Desyrel] 100 mg PO BEDTIME Methocarbamol 750 mg PO TID PRN PRN Reason: Spasms Pantoprazole Tab [Protonix Tab] 40 mg PO DAILY #30 tablet Oxycodone HCl/Acetaminophen [Oxycodone-Acetaminophen 10-325] 1 tablet PO QID PRN #14 tablet PRN Reason: Pain Meloxicam [Mobic] 15 mg PO DAILY Levothyroxine Tab [Synthroid Tab] 100 mcg PO DAILY - Follow Up or Referral - Forms/Instructions
[2016-12-27 13:17] VITALS: BP 129/86
[2016-12-27] MEDS: DULoxetine 30 MG CAPSULE PO SCH (14:04)
[2016-12-27] MEDS: DIVALPROEX 500 MG TABLET PO SCH (14:04)
[2016-12-27] MEDS: LEVOTHYROXINE 100 MCG TABLET PO SCH (14:04)
[2016-12-27] MEDS: NICOTINE 21 MG/24 HR PATCH TRANSDERM SCH (14:05)
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
[2016-12-27] MEDS ORDERED: AMITRIPTYLINE 10 MG TABLET PO SCH (21:00)
== END 2016-12-27 15:26 | disposition home or self-care (01) | DRG 439 ==
LOC: N.ED 11:18 → SUATTDRO 16:00 → N.EDINP 16:00 → N.2E 16:45
PROVIDERS: ADMIT Internal Medicine; ATTEND Internal Medicine

== ENCOUNTER 2017-02-07 20:02 | Inpatient (IN) ==
[2017-02-07 20:39] LABS: Basophils % 0.2 % (0.0-0.8); Eosinophils # 0.2 10*3/uL (0.0-0.87); Eosinophils % 1.3 % (0.00-10.9); Hematocrit 29.9 VOL% (35.7-47.0); Hemoglobin 10.3 GM/DL (12.0-16.0); Immature Granulocytes % 0.5 %; Immature Granulocytes Absolute 0.06 #; Lymphocytes # 0.5 10*3/uL (1.4-4.0); Lymphocytes % 4.4 % (21.3-54.2); Mean Corpuscular HGB Conc 34.4 GM/DL (32-36); Mean Corpuscular Hemoglobin 32 PG (27-34); Mean Corpuscular Volume 93.1 FL (87-102); Mean Platelet Volume 9.6 FL (9.6-12.0); Monocytes # 0.2 10*3/uL (0.11-0.8); Neutrophils # 10.6 10*3/uL (1.4-7.4); Neutrophils % 91.6 % (38.7-73.9); Platelet Count 297 T/CUMM (130-400); Red Blood Count 3.21 MC/CUMM (3.8-5.5); White Blood Count 11.6 T/CUMM (4-12)
--- NOTE | 2017-02-07 20:57 | XRay Report ---
History short of breath Comparison 11/16/2016 Chest, 2 views Heart is normal in size the MediPort catheter present There has been development of moderate to severe bilateral reticular hazy and more confluent pulmonary opacities and more pronounced in the lung bases worse on the right. Spinal rods present. There is mild thickening of the fissures Impression: Interval development of moderate to severe bilateral right greater than left infiltrates. Follow-up until clear recommended PROCEDURE INTERPRETED AT [facility] DEPARTMENT OF RADIOLOGY Final Report Signed by: Dr. Loida Vela
[2017-02-07 21:06] LABS: Alanine Aminotransferase 14 U/L (13-56); Albumin 2.9 G/DL (3.4-5.0); Alkaline Phosphatase 121 U/L (45-117); Aspartate Amino Transferase 40 U/L (0-37); Bilirubin,Total < 0.39 MG/DL (0.2-1.0); Blood Urea Nitrogen 18 MG/DL (7-18); Calcium 9.1 MG/DL (8.5-10.1); Glucose 102 MG/DL (74-106); Magnesium 1.6 MG/DL (1.8-2.4); Osmolality,Calculated 261.8 MOS/KG (273-304); Potassium 3.7 MMOL/L (3.5-5.1); Sodium 130 MMOL/L (136-145); Total Protein 7.9 G/DL (6.4-8.3); Troponin I Only < 0.015 NG/ML (0.00-0.045)
[2017-02-07 21:11] LABS: Burr Cells Few; Eosinophils 2 % (0-10); Lymphocytes 4 % (20-55); Platelet Estimate Normal; Poikilocytosis Slight; Segmented Neutrophils 93 % (50-85); Total Cells Counted 100
[2017-02-07] MEDS ORDERED: SODIUM CHLORIDE 0.9% 1,000 ML IV STA (21:33)
[2017-02-07] MEDS ORDERED: ALBUTEROL/IPRATROPIUM 3 ML NEB RESP TX STA (21:34)
[2017-02-07] MEDS ORDERED: LEVOFLOXACIN INJ 750 MG in PREMIX 1 EACH IV STA (21:34)
--- NOTE | 2017-02-07 21:39 | EKG Report ---
Stationary ECG Study [facility] ER Test Date: 02/07/2017 8:11:20 PM Pat Name: GYPSY NICOLAS Department: Room: Gender: F Ladderman: merari : 1970 Requested by: Juice Saenz Order Number: [id number] Reading MD: ALEX COOMBS Intervals [place] Rate: 108 P: 67 MA: 144 QRS: 74 QRSD: 90 T: 62 QT: 311 QTc: 374 Interpretive Statements SINUS TACHYCARDIA BI-ATRIAL ABNORMALITY Electronically Signed On 02-10-17 17:20:26 CDT by ALEX COOMBS [id number]
--- NOTE | 2017-02-07 21:56 | Emergency Department Note ---
Arrival - Arrival Chief Complaint: Shortness of Breath Stated Complaint: SOB ED Nursing Triage Note: Patient complains of shortness of breath and cough that began about two days ago. Denies any respiratory or cardiac medical problems. Patient has history of renal, vulva and anal cancer, right arm amputation. Denies nausea/vomiting. Nasal flaring, grunting respirations and retractions noted upon triage. Mode of Arrival: Wheelchair Limitations: No Limitations Source: Patient Time Seen by Provider: 02/07/17 21:21 - History of Present Illness HPI Narrative: The patient complains of cough and shortness of breath for the past 2 days. Cough has been productive of a small amount of green sputum. She went to [facility] earlier tonight and was found to have a temperature of 100.3. She left there prior to treatment and came here. Patient has no history of cardiac or pulmonary problems, however, she is a heavy smoker. She denies any rhinorrhea, sore throat, nausea, vomiting or other symptoms. Date of Last Menstrual Period: hysterectomy Allergies/Adverse Reactions: Allergies Allergy/AdvReac Type Severity Reaction Status Date / Time tapentadol [From Nucynta] AdvReac Severe RASH Verified 12/25/16 11:23 Home Medications: Home Medications Medication Instructions Recorded Confirmed Type Divalproex [Depakote] 1,000 mg PO BID 10/01/14 12/25/16 History Duloxetine HCl [Cymbalta] 60 mg PO QAM 10/01/14 12/25/16 History traZODone [Desyrel] 100 mg PO BEDTIME 10/01/14 12/25/16 History Methocarbamol 750 mg PO TID PRN 04/23/16 12/25/16 History Pantoprazole Tab [Protonix Tab] 40 mg PO DAILY #30 tablet 11/18/16 12/25/16 Rx Levothyroxine Tab [Synthroid Tab] 100 mcg PO DAILY 12/25/16 12/25/16 History Meloxicam [Mobic] 15 mg PO DAILY 12/25/16 12/25/16 History Amitriptyline [Elavil] 10 mg PO BEDTIME #30 tablet 12/27/16 Rx Nicotine 21 mg/24 Hr Patch 1 patch TRANSDERM DAILY #7 patch 12/27/16 Rx [Nicoderm CQ 21 mg/24 hr Patch] Oxycodone HCl/Acetaminophen 1 tablet PO QID PRN #14 tablet 12/27/16 Rx [Oxycodone-Acetaminophen 10-325] Review of System - Review of System 12 point system: reviewed and no additional remarkable complaints except as stated - Review of System Constitutional: Present: fever, weakness Head/Ears/Nose/Throat: Absent: nasal drainage, sore throat Respiratory: Present: cough, respiratory distress, wheezing Cardiovascular: Absent: chest pain Gastrointestinal: Absent: abdominal pain, nausea, vomiting Musculoskeletal: Present: back pain (Chronic) Medical,Surgical,& Family Hx - Medical History Cardio: No history of: CHF, Hypertension Psychological: History of: Anxiety Disorders, Psychiatric/Substance Abuse Tx ( On methadone) No history of: ADHD, Behavior Problems, Bipolar Disorder, Depression, Previous Suicide Attempt, Schizophrenia Neurology: History of: Seizures HEENT: History of: Eye Problem (READING GLASSES) Endocrine: History of: Thyroid Disorder (thyroid removed 2014) Respiratory: No history of: Asthma, Bronchitis, COPD, Intubation, Obstructive Sleep Apnea , Pneumonia, Lung Cancer Comment Only: Respiratory Problems (SMOKER) Renal: Comment Only: Renal (Kidney) Cancer (L KIDNEY MASS, BIOPSY DONE 02/24/16) Genitourinary: History of: Genitourinary Cancer (Renal cell carcinoma resected in 2015 with nephrectomy) Gastrointestinal: History of: 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) Musculoskeletal: History of: Amputation, Back/Neck Problems, Musculoskeletal Problems (FX T5?) Hematology: History of: Anemia No history of: Blood Transfusion Reaction Reproductive: History of: Abnormal Pap Smear, Reproductive Cancer (vulvar CA) Other: No history of: Anesthesia Reactions - Surgical History Cardiac Surgeries: Patient Denies: Cardiac Catheterization Thoracic Surgeries: Surgical HX of;: Kidney (Renal Surgery) (L kidney removed ) Patient denies;: Organ Transplant, Lobectomy Neurologic Surgeries: Patient denies: Neurologic Surgery HEENT Surgeries: Surgical HX of: Thyroid Surgery (GOITER NODULES) Patient denies: Eye Surgery, Tonsilectomy & Adenoidectomy Abdominal Surgeries: Surgical HX of: Abdominal Surgery (gallbladder removed 2014 ), Cholecystectomy Patient denies: Splenectomy Reproductive Surgeries: Surgical HX of;: Section, Dilation and Curettage, Gynecologic Surgery (VULVECTOMY), Hysterectomy (PARTIAL), Tubal Ligation Patient denies;: Genitourinary Surgery Orthopedic Surgeries: Surgical HX of;: Implanted Devices, Orthopedic Surgery ( HARWARLE L ANKLE BACK, left upper extremity amputation) - Family History Family History: Reports;: Family Diabetes (FATHER), Family Heart Disease (MOTHER ), Family Hypertension (MOTHER, FATHER) Denies;: Family Anesthesia Reaction, Family Cancer, Family Psychiatric Problems, Family Stroke - Social History Smoking Status: Current every day smoker Frequency of Alcohol Use: None Type of Drug Use: None Exam Physical Examination: GENERAL: Alert. No acute distress. HEENT: Normocephalic and atraumatic. There is no nasal drainage. No pharyngeal erythema or exudate. Dry mucous membranes. NECK: Normal inspection. Supple. No lymphadenopathy or meningismus. LUNGS: No respiratory distress. Coarse breath sounds and wheezing bilaterally. HEART: Regular rate and rhythm. ABDOMEN: Soft, nontender and nondistended with normoactive bowel sounds. BACK: Normal inspection. SKIN: Color normal. Warm and dry. EXTREMITIES: Nontender. Normal range of motion. No pedal edema. NEUROLOGICAL/PSYCHIATRIC: Alert and oriented -3 with normal mood and affect. Cranial nerves normal. No motor or sensory deficit. Vital Signs: Vital Signs Temperature 99.4 F 02/07/17 21:00 Pulse Rate 97 H 02/07/17 21:46 Respiratory Rate 22 02/07/17 21:46 Blood Pressure 127/70 02/07/17 21:00 O2 Sat by Pulse Oximetry 91 L 02/07/17 21:46 Course Course Narrative: Note: The multiple negatives in the past medical history were not marked by me. They are the result of the triage process, past medical records or other unknown causes. Due to time constraints, these were not all reviewed with the patient and the backslashes were not removed from the chart. They should be ignored. - Reevaluation(s) Reevaluation #1: I have discussed the patient with the hospitalist service who will see her and admit. Time: 21:58 Results - Labs CBC & BMP: 02/07/17 20:24 02/07/17 20:24 Lab Results: I have reviewed the patients labs Labs: Laboratory Tests 02/07/17 02/07/17 20:24 20:24 D-Dimer, Quantitative 2.9 Magnesium 1.6 L Total Bilirubin < 0.39 AST 40 H ALT 14 Troponin I < 0.015 Albumin 2.9 L Globulin 5.0 H Albumin/Globulin Ratio 0.5 L - Impressions Chest x-ray shows bilateral infiltrates, right greater than left. Disposition Clinical Impression: Pneumonia Case discussed with: patient, patient's family Disposition: Still a Patient Condition: Stable Time of Disposition: 22:00
[2017-02-07] MEDS ORDERED: LEVOFLOXACIN INJ 150 ML IV ONE (22:02)
[2017-02-07] MEDS ORDERED: ALBUTEROL/IPRATROPIUM 3 ML NEB RESP TX PRN (22:33)
[2017-02-07] MEDS ORDERED: ACETAMINOPHEN 325 MG TABLET PO PRN (22:37)
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
[2017-02-07] MEDS: methylPREDNISolone SOD SUC 125 MG/2 ML VIAL IV SCH (23:43)
[2017-02-08] MEDS: ALBUTEROL/IPRATROPIUM 3 ML NEB RESP TX SCH ×4 (00:34→19:19)
[2017-02-08] MEDS ORDERED: cefTRIAXone 1,000 MG in SODIUM CHLORIDE 0.9% 100 ML IV SCH (01:00)
[2017-02-08] MEDS: methylPREDNISolone SOD SUC 125 MG/2 ML VIAL IV SCH (06:04)
[2017-02-08] MEDS: LEVOTHYROXINE 100 MCG TABLET PO SCH (06:06)
[2017-02-08 06:09] LABS: Basophils % 0.2 % (0.0-0.8); Hematocrit 25.8 VOL% (35.7-47.0); Hemoglobin 8.8 GM/DL (12.0-16.0); Immature Granulocytes % 0.6 %; Immature Granulocytes Absolute 0.07 #; Lymphocytes # 0.2 10*3/uL (1.4-4.0); Lymphocytes % 1.5 % (21.3-54.2); Mean Corpuscular HGB Conc 34.1 GM/DL (32-36); Mean Corpuscular Hemoglobin 32 PG (27-34); Mean Corpuscular Volume 93.8 FL (87-102); Mean Platelet Volume 10.1 FL (9.6-12.0); Monocytes # 0.1 10*3/uL (0.11-0.8); Monocytes % 0.9 % (1.7-12.7); Neutrophils # 11.2 10*3/uL (1.4-7.4); Neutrophils % 96.8 % (38.7-73.9); Platelet Count 251 T/CUMM (130-400); Red Blood Count 2.75 MC/CUMM (3.8-5.5); Red Cell Distribution Width 13.2 % (9.3-17.3); White Blood Count 11.6 T/CUMM (4-12)
[2017-02-08 06:55] LABS: Band Neutrophils 6 % (0-10); Hypochromasia Slight; Lymphocytes 1 % (20-55); Platelet Estimate Adequate; Segmented Neutrophils 93 % (50-85); Target Cells Slight; Total Cells Counted 100
[2017-02-08 07:04] LABS: Albumin 2.4 G/DL (3.4-5.0); Bilirubin,Total 0.6 MG/DL (0.2-1.0); Calcium 8.4 MG/DL (8.5-10.1); Magnesium 1.7 MG/DL (1.8-2.4); Osmolality,Calculated 271.1 MOS/KG (273-304); Potassium 4.4 MMOL/L (3.5-5.1); Total Protein 5.7 G/DL (6.4-8.3)
[2017-02-08 08:07] LABS: Allen Test Positive; Pt O2 Delivery Device Venturi Mask
[2017-02-08 08:09] LABS: ABG Base Excess -4.7 MMOL/L (-2.5-2.5); ABG HCO3 18.5 MMOL/L (20-26); ABG Oxygen Saturation 93.5 % (95-100); ABG PCO2 27.9 MM HG (35-48); ABG PO2 62.3 MM HG (80-95); ABG TCO2 19.4 MMOL/L (23-27)
--- NOTE | 2017-02-08 08:22 | Pulmonology Consult Note ---
Assessment and Plan (1) Anal cancer Status: Chronic Assessment and plan: Previously treated and felt to be in remission. Current Visit: No (2) Chronic anemia Status: Chronic Assessment and plan: Hematocrit 25. Probably would be a good idea to have oncology to see her. Dr. Ching has seen her in the past. Current Visit: No (3) Renal cell carcinoma of left kidney Status: Resolved Assessment and plan: She has had the left kidney resected Current Visit: No (4) History of seizure disorder Status: Chronic Assessment and plan: Limits her choices in antibiotics. We had considered Levaquin and Merrem but both of which can lower the seizure threshold so we did not give him. Current Visit: No (5) Pneumonia Status: Acute Assessment and plan: Broad-spectrum antibiotics. Patient then is a smoker with underlying COPD and history of multiple cancers likely immunocompromised. Current Visit: Yes History of Present Illness Chief complaint: Cough fever shortness of breath History of present illness: Ms. Rodriguez is a 46 year old female smoker with a history of vulvar cancer, anal cancer, renal cell carcinoma with left nephrectomy. She has had previous pancreatitis. Previous amputation of the left arm. She says that she is in remission from her malignancies. In any rate she had the acute onset shortness of breath for about 3 days with a cough and fever and came into the emergency room last night. She is coughing up a small amount of green sputum. She has had some fever and chills. Her appetite's been poor. She is having pain in her rib cage on inspiration. She has been more short of breath. She smokes a pack of cigarettes a day right up until admission. She tells me that she is quitting now. Home Medications Medication Instructions Recorded Confirmed Type Divalproex [Depakote] 1,000 mg PO BID 10/01/14 02/07/17 History Duloxetine HCl [Cymbalta] 60 mg PO QAM 10/01/14 02/07/17 History traZODone [Desyrel] 100 mg PO BEDTIME 10/01/14 02/07/17 History Pantoprazole Tab [Protonix Tab] 40 mg PO DAILY #30 tablet 11/18/16 02/07/17 Rx Levothyroxine Tab [Synthroid Tab] 100 mcg PO DAILY 12/25/16 02/07/17 History Meloxicam [Mobic] 15 mg PO DAILY 12/25/16 02/07/17 History Methadone HCl 60 mg PO DAILY 02/07/17 02/07/17 History Allergies Allergy/AdvReac Type Severity Reaction Status Date / Time tapentadol [From Nucynta] AdvReac Severe RASH Verified 12/25/16 11:23 12 point system: reviewed and no additional remarkable complaints except as stated - Cardiovascular Cardiovascular: Present: dyspnea, dyspnea on exertion, orthopnea - Respiratory Respiratory: Present: cough, dyspnea, dyspnea on exertion, wheezing, change in phlegm color - Gastrointestinal Gastrointestinal: Present: nausea - Genitourinary Genitourinary: Present: other (See past history for details of gynecologic and urologic cancers.) - Musculoskeletal Musculoskeletal: Present: back pain Exam (Pulmonay) H&P - Constitutional Vitals: Period Temp Pulse Resp BP Sys/Pham Pulse Ox Last 24 Hr 98.5 F-99.4 F 80-122 17-28 112-151/65-93 86-98 Exam: Patient had temperature 101.1 last night. Heart rate is about 110. Afebrile presently. Respiratory rate in the upper 20s. O2 sat 93% on 4 L. Pupils react to light. Throat is clear. Patient is quite anxious. Neck supple no bruits. Chest reveals a few basilar rhonchi and rales. Heart rapid rate normal rhythm no murmurs. Abdomen soft nontender no masses. Extremities no clubbing cyanosis or edema. Calves nontender. Medical,Surgical,& Family Hx - Medical History Cardio: No history of: CHF, Hypertension Psychological: History of: Anxiety Disorders, Psychiatric/Substance Abuse Tx ( On methadone) No history of: ADHD, Behavior Problems, Bipolar Disorder, Depression, Previous Suicide Attempt, Schizophrenia Neurology: History of: Seizures HEENT: History of: Eye Problem (READING GLASSES) Endocrine: History of: Thyroid Disorder (thyroid removed 2014) Respiratory: No history of: Asthma, Bronchitis, COPD, Intubation, Obstructive Sleep Apnea , Pneumonia, Lung Cancer Renal: History of: Renal (Kidney) Cancer (L KIDNEY MASS, BIOPSY 02/24/16; Renal cell carcinoma s/p left nephrectomy) Genitourinary: History of: Genitourinary Cancer (Vulvar cancer) Gastrointestinal: History of: 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) Musculoskeletal: History of: Amputation, Back/Neck Problems, Musculoskeletal Problems (FX T5?) Hematology: History of: Anemia No history of: Blood Transfusion Reaction Reproductive: History of: Abnormal Pap Smear, Reproductive Cancer (vulvar CA) Other: No history of: Anesthesia Reactions - Surgical History Cardiac Surgeries: Patient Denies: Cardiac Catheterization Thoracic Surgeries: Surgical HX of;: Kidney (Renal Surgery) (L kidney removed ) Patient denies;: Organ Transplant, Lobectomy Neurologic Surgeries: Patient denies: Neurologic Surgery HEENT Surgeries: Surgical HX of: Thyroid Surgery (GOITER NODULES) Patient denies: Eye Surgery, Tonsilectomy & Adenoidectomy Abdominal Surgeries: Surgical HX of: Abdominal Surgery (gallbladder removed 2014 ), Cholecystectomy Patient denies: Splenectomy Reproductive Surgeries: Surgical HX of;: Section, Dilation and Curettage, Gynecologic Surgery (VULVECTOMY), Hysterectomy (PARTIAL), Tubal Ligation Patient denies;: Genitourinary Surgery Orthopedic Surgeries: Surgical HX of;: Implanted Devices, Orthopedic Surgery ( HARWARLE L ANKLE BACK, left upper extremity amputation) - Family History Family History: Reports;: Family Diabetes (FATHER), Family Heart Disease (MOTHER ), Family Hypertension (MOTHER, FATHER) Denies;: Family Anesthesia Reaction, Family Cancer, Family Psychiatric Problems, Family Stroke - Social History Smoking Status: Current every day smoker Frequency of Alcohol Use: None Type of Drug Use: None Results - Labs CBC & BMP: 02/08/17 04:33 02/08/17 04:33 Lab Results: I have reviewed the past 24 hour labs - Diagnostic Findings Procedure: Chest x-ray: image reviewed by me (Bilateral lower lobe hazy infiltrates. She has a right-sided Mediport.)
[2017-02-08] MEDS: AZITHROMYCIN 250 MG TABLET PO SCH (08:37)
[2017-02-08] MEDS: METHADONE 10 MG TABLET PO SCH (08:37)
[2017-02-08] MEDS: PANTOPRAZOLE 40 MG TABLET PO SCH (08:38)
[2017-02-08] MEDS: MELOXICAM 7.5 MG TABLET PO SCH (08:38)
[2017-02-08] MEDS: ONDANSETRON 4 MG/2 ML VIAL IV PRN ×2 (08:50→21:10)
[2017-02-08] MEDS: DULoxetine 30 MG CAPSULE PO SCH (08:52)
[2017-02-08] MEDS: DIVALPROEX 500 MG TABLET PO SCH ×2 (08:53→21:12)
[2017-02-08] MEDS: ENOXAPARIN 40 MG/0.4 ML SYRINGE SUBCUT SCH (08:53)
--- NOTE | 2017-02-08 09:07 | XRay Report ---
XR chest 1V portable Indication: Shortness of breath Comparison: 07 February 2017 Findings: The heart and mediastinum are stable in size and configuration. Right subclavian catheter is unchanged in position. The pulmonary vascularity is increased with bilateral increased interstitial lung density increased from previous. No other lung infiltrates, effusions, pneumothorax or other abnormality is demonstrated. Impression: Findings suggest increasing cardiac decompensation. PROCEDURE INTERPRETED AT [facility] DEPARTMENT OF RADIOLOGY Final Report Signed by: Dr. Phi Montano
[2017-02-08] MEDS ORDERED: MEROPENEM 1,000 MG in SODIUM CHLORIDE 0.9% 100 ML IV SCH (10:00)
[2017-02-08] MEDS ORDERED: PIPERACILLIN/TAZOBACTAM 3,375 MG in SODIUM CHLORIDE 0.9% 100 ML IV SCH (10:00)
--- NOTE | 2017-02-08 17:46 | Hospitalist Progress Note ---
Hospitalist: Subjective Interval history: 46-year-old white female admitted with COPD exacerbation and pneumonia. Exam - Constitutional Vitals: Period Temp Pulse Resp BP Sys/Pham Pulse Ox Last 24 Hr 96.2 F-99.4 F 79-122 17-28 110-151/60-93 86-98 Exam: General: No Acute Distress HEENT: Normocephalic, atraumatic, Extra ocular movements intact Neck: Supple, No JVD Chest: Wheezing and rhonchi bilaterally CV: S1 + S2 audible without murmur, gallop or rub Abd: soft, NT, Non-distended, BS + Ext: No edema Skin: Some rash on back Rheumatologic: No Joint deformities Neurologic: Awake and alert Results - Labs CBC & BMP: 02/08/17 04:33 02/08/17 04:33 - Impressions Assessment and Plan: Pneumonia Status: Acute Assessment and plan: Continue antibiotic IV Zosyn and Zithromax Current Visit: Yes Acute on chronic COPD exacerbation Status: Acute Assessment and plan: Continue nebs and steroids Current Visit: Yes Acute on chronic hypoxemic respiratory failure Status: Acute Assessment and plan: Continue oxygen and titrate keep saturation above 90% Current Visit: Yes History of seizure disorder Status: Chronic Assessment and plan: Continue Depakote Current Visit: No
[2017-02-08] MEDS: methylPREDNISolone SOD SUC 40 MG/1 ML VIAL IV SCH (18:01)
[2017-02-08] MEDS: PIPERACILLIN/TAZOBACTAM 3,375 MG in SODIUM CHLORIDE 0.9% 100 ML IV SCH (18:02)
[2017-02-09] MEDS: ALBUTEROL/IPRATROPIUM 3 ML NEB RESP TX SCH ×4 (00:57→19:57)
[2017-02-09] MEDS: PIPERACILLIN/TAZOBACTAM 3,375 MG in SODIUM CHLORIDE 0.9% 100 ML IV SCH ×3 (01:34→16:57)
[2017-02-09] MEDS: methylPREDNISolone SOD SUC 40 MG/1 ML VIAL IV SCH ×3 (01:38→16:52)
[2017-02-09] MEDS: LEVOTHYROXINE 100 MCG TABLET PO SCH (06:34)
--- NOTE | 2017-02-09 07:50 | Pulmonology Progress Note ---
Pulmonary - PN: Subj Interval history: This 46-year-old white female came out after 3 days history of cough congestion fever and shortness of breath. She had pretty severe hypoxemia yesterday and has been requiring a Ventimask. This morning her oxygen saturation is 99% on 40 % Ventimask. She feels a little better. Will change her to nasal byproducts. Appetite is not good and she has been encouraged to drink 9 supplements. She is a long-term smoker and certainly has COPD. She has a history of multiple malignancies in the past. 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 Exam (Progress Note) - Constitutional Vitals: Period Temp Pulse Resp BP Sys/Pham Pulse Ox Last 24 Hr 96.2 F-98.0 F 79-89 18-26 110-124/60-87 93-99 Exam: She is alert responsive. Vital signs normal. Pupils react to light. Throat is clear. Wearing facemask oxygen 40% Ventimask and her O2 sats measured 99%. Neck is supple. Chest reveals some expiratory rhonchi bilaterally. Heart normal rate and rhythm no murmurs. Abdomen soft nontender no masses. No organomegaly. Extremities no clubbing cyanosis or edema. Calves nontender. Results - Labs CBC & BMP: 02/08/17 04:33 02/08/17 04:33 Lab Results: I have reviewed the past 24 hour labs Assessment and Plan (1) Anal cancer Status: Chronic Assessment and plan: Previously treated and felt to be in remission. Current Visit: No (2) Chronic anemia Status: Chronic Assessment and plan: Hematocrit 25. Probably would be a good idea to have oncology to see her. Dr. Ching has seen her in the past. 02/09/2017 following this. Again we need to have oncology check back again on her. Current Visit: No (3) Renal cell carcinoma of left kidney Status: Resolved Assessment and plan: She has had the left kidney resected Current Visit: No (4) History of seizure disorder Status: Chronic Assessment and plan: Limits her choices in antibiotics. We had considered Levaquin and Merrem but both of which can lower the seizure threshold so we did not give him. 02/09/2017 continuing seizure medications. That would be Depakote. We are avoiding antibiotics that might lower the seizure threshold. Current Visit: No (5) Pneumonia Status: Acute Assessment and plan: Broad-spectrum antibiotics. Patient then is a smoker with underlying COPD and history of multiple cancers likely immunocompromised. 02/09/2017 she has a bilateral extensive bronchopneumonia. She is on broad- spectrum antibiotics. Cultures are pending. Follow-up x-ray tomorrow. Current Visit: Yes (6) Tobacco abuse Status: Acute Assessment and plan: She states that she will no longer smoke. We have been encouraging each day. Current Visit: Yes
[2017-02-09] MEDS: DULoxetine 30 MG CAPSULE PO SCH (08:58)
[2017-02-09] MEDS: DIVALPROEX 500 MG TABLET PO SCH ×2 (08:59→21:46)
[2017-02-09] MEDS: ENOXAPARIN 40 MG/0.4 ML SYRINGE SUBCUT SCH (08:59)
[2017-02-09] MEDS: METHADONE 10 MG TABLET PO SCH (09:00)
[2017-02-09] MEDS: MELOXICAM 7.5 MG TABLET PO SCH (09:01)
[2017-02-09] MEDS: PANTOPRAZOLE 40 MG TABLET PO SCH (09:02)
[2017-02-09] MEDS: AZITHROMYCIN 250 MG TABLET PO SCH (09:02)
--- NOTE | 2017-02-09 16:50 | Hospitalist Progress Note ---
Hospitalist: Subjective Interval history: 46-year-old female with COPD and pneumonia, still has shortness of breath. Exam - Constitutional Vitals: Period Temp Pulse Resp BP Sys/Pham Pulse Ox Last 24 Hr 96.3 F-97.7 F 83-100 16-26 111-124/59-71 92-99 Exam: General: No Acute Distress HEENT: Normocephalic, atraumatic, Extra ocular movements intact Neck: Supple, No JVD Chest: Wheezing and rhonchi bilaterally CV: S1 + S2 audible without murmur, gallop or rub Abd: soft, NT, Non-distended, BS + Ext: No edema Skin: Some rash on back Rheumatologic: No Joint deformities Neurologic: Awake and alert Results - Labs CBC & BMP: 02/08/17 04:33 02/08/17 04:33 - Impressions Assessment and Plan: Pneumonia Status: Acute Assessment and plan: Continue antibiotic IV Zosyn and Zithromax Current Visit: Yes Acute on chronic COPD exacerbation Status: Acute Assessment and plan: Continue nebs and steroids Current Visit: Yes Acute on chronic hypoxemic respiratory failure Status: Acute Assessment and plan: Continue oxygen and titrate keep saturation above 90% Current Visit: Yes History of seizure disorder Status: Chronic Assessment and plan: Continue Depakote Current Visit: No
--- NOTE | 2017-02-09 17:14 | ECHO Report ---
Tanya Rodriguez Exam Date: 02/09/2017 11:28 Referring Physician: Technologist: Kellie Emery Age: 46 Ht (in): 68 Wt (lb): 135 Gender: F Exam Location: [facility] Echo Indications: SOB, Anal Ca., chronic anemia, renal cell Ca., pneumonia, seizures, tobacco abuse, breast implants BP: 121 / 63 HR: 91 Rhythm: Sinus Technical Quality: IMPRESSIONS Left ventricular ejection fraction is estimated at 65 %. Diastole parameters appear to be normal. There is no regional wall motion abnormality. Tricuspid regurgitation velocities suggest a RVSP of 30 mmHg + RAP. MEASUREMENTS (Male / Female) Normal Values 2D ECHO LV Diastolic Diameter PLAX 4.2 cm 4.2 - 5.9 / 3.9 - 5.3 cm LV Systolic Diameter PLAX 2.6 cm LV Fractional Shortening PLAX 38.9 % IVS Diastolic Thickness 0.8 cm 0.6 - 1.0 / 0.6 - 0.9 cm LVPW Diastolic Thickness 1.0 cm 0.6 - 1.0 / 0.6 - 0.9 cm RV Internal Dim ED PLAX 2.9 cm Aortic Root Diameter 2.4 cm LA Systolic Diameter LX 3.9 cm 3.0 - 4.0 / 2.7 - 3.8 cm DOPPLER TR Peak Velocity 276.0 cm/s TR Peak Gradient 30.5 mmHg FINDINGS Left Ventricle Normal left ventricular cavity size. Left ventricular ejection fraction is estimated at 65 %. There is no regional wall motion abnormality. Diastole parameters appear to be normal. Right Ventricle Normal right ventricular size. Right Atrium Normal right atrial size. Left Atrium Normal left atrial size. Mitral Valve Mildly thickened mitral valve with mild mitral regurgitation. Aortic Valve The aortic valve is trileaflet and has normal motion. Tricuspid Valve Morphologically normal tricuspid valve. Trace tricuspid valve regurgitation. Tricuspid regurgitation velocities suggest a RVSP of 30 mmHg + RAP. Pulmonic Valve Morphologically normal pulmonic valve. Pericardium No pericardial effusion. Aorta Normal size aortic root and proximal ascending aorta. Betty Pitt (Electronically Signed) Final Date: 09 February 2017 17:14
[2017-02-09] MEDS ORDERED: LEVOFLOXACIN INJ 750 MG in PREMIX 1 EACH IV SCH (21:00)
[2017-02-10] MEDS: ALBUTEROL/IPRATROPIUM 3 ML NEB RESP TX SCH ×4 (00:02→19:41)
[2017-02-10] MEDS: PIPERACILLIN/TAZOBACTAM 3,375 MG in SODIUM CHLORIDE 0.9% 100 ML IV SCH ×3 (01:42→17:32)
[2017-02-10] MEDS: methylPREDNISolone SOD SUC 40 MG/1 ML VIAL IV SCH ×3 (01:45→17:28)
[2017-02-10] MEDS: LEVOTHYROXINE 100 MCG TABLET PO SCH (06:48)
[2017-02-10] MEDS: DIVALPROEX 500 MG TABLET PO SCH ×2 (08:45→21:42)
[2017-02-10] MEDS: MELOXICAM 7.5 MG TABLET PO SCH (08:45)
[2017-02-10] MEDS: AZITHROMYCIN 250 MG TABLET PO SCH (08:45)
[2017-02-10] MEDS: METHADONE 10 MG TABLET PO SCH (08:46)
[2017-02-10] MEDS: DULoxetine 30 MG CAPSULE PO SCH (08:46)
[2017-02-10] MEDS: PANTOPRAZOLE 40 MG TABLET PO SCH (08:46)
[2017-02-10] MEDS: ENOXAPARIN 40 MG/0.4 ML SYRINGE SUBCUT SCH (09:03)
--- NOTE | 2017-02-10 10:53 | XRay Report ---
History is pneumonia Comparison 02/08/2017 The heart is mildly enlarged There remain moderate diffuse reticulonodular and hazy bilateral pulmonary opacities with mild improvement in the interval. Impression: Mild improvement with continued diffuse bilateral infiltrates versus edema PROCEDURE INTERPRETED AT [facility] DEPARTMENT OF RADIOLOGY Final Report Signed by: Dr. Loida Vela
--- NOTE | 2017-02-10 11:09 | Pulmonology Progress Note ---
Pulmonary - PN: Subj Interval history: Patient is a 46-year-old white lady that has COPD and came in with bilateral pneumonia. She apparently has been very ill but is getting better. She feels like her breathing is much better now. She still is requiring oxygen and get short of breath easily. She has been quite debilitated with a history of renal cancer and anal cancer. Her chest x-ray is improving some. She says she is comfortable at present. Exam (Progress Note) - Constitutional Vitals: Period Temp Pulse Resp BP Sys/Pham Pulse Ox Last 24 Hr 96.8 F-98.5 F 88-106 16-20 111-134/57-79 92-99 General appearance: under weight, other (She looks chronically ill but is comfortable at rest) - Head Head exam: Present: normal inspection, normocephalic - Eye Eye exam: Present: EOMI. Absent: scleral icterus Pupils: Present: ZEE - ENT ENT exam: Present: normal exam - Neck Neck exam: Absent: lymphadenopathy, thyromegaly - Respiratory Respiratory exam: Present: prolonged expiratory phase, rhonchi, other (She has crackles in the bases) - Cardiovascular Cardiovascular exam: Present: regular rate and rhythm. Absent: gallop, systolic murmur - GI/Abdominal GI/Abdominal exam: Present: normal bowel sounds, soft. Absent: organomegaly, tenderness - Extremities Exam Extremities exam: Present: other (She has had a left arm amputation). Absent: calf tenderness, edema - Neurological Exam Neurological exam: Present: alert, oriented X3, CN II-XII intact - Psychiatric Psychiatric exam: Absent: anxious - Skin Skin exam: Present: warm, dry Results - Labs CBC & BMP: 02/08/17 04:33 02/08/17 04:33 - Diagnostic Findings Procedure: Chest x-ray: image reviewed by me, report reviewed by me (Chest x- ray shows COPD changes and still has some mild bilateral infiltrates.) Assessment and Plan (1) Anal cancer Status: Chronic Assessment and plan: This is felt to be in remission. Current Visit: No (2) Renal cell carcinoma of left kidney Status: Resolved Assessment and plan: She has had a left nephrectomy. Current Visit: No (3) History of seizure disorder Status: Chronic Assessment and plan: She is getting treatment for seizures but no active seizures now. Current Visit: No (4) Hypothyroidism Status: Chronic Assessment and plan: She will continue with thyroid replacement. Current Visit: Yes (5) Pneumonia Status: Acute Assessment and plan: She has bilateral pneumonia that is improving. She will continue with antibiotics. Current Visit: Yes (6) Chronic kidney disease Status: Chronic Assessment and plan: Her creatinine was last checked at 1.4. Current Visit: Yes (7) Tobacco abuse Status: Acute Assessment and plan: She certainly needs to quit smoking. Current Visit: Yes (8) COPD (chronic obstructive pulmonary disease) Status: Acute Assessment and plan: He will continue treatment for COPD. Current Visit: Yes
--- NOTE | 2017-02-10 11:40 | Hospitalist Progress Note ---
Assessment and Plan (1) Pneumonia Status: Acute Assessment and plan: Impression: 1. Bilateral pneumonia, organism not known. This could be pulmonary vascular congestion, although she has no documented history of congestive heart failure 2. COPD with acute exacerbation 3. Nicotine addiction Plan: Add n-acetylcysteine. Continue current antibiotics and bronchodilators. Continue steroids. This note was completed using [employer] voice recognition software. There may be health nurse errors as a result. Current Visit: Yes Qualifiers: Pneumonia type: due to unspecified organism Laterality: bilateral Lung location: lower lobe of lung Qualified Code(s): J18.9 - Pneumonia, unspecified organism Hospitalist: Subjective Interval history: Follow-up pneumonia and COPD exacerbation. The patient reports that she is breathing easier. She still has some difficulty producing any sputum. She says that it is too thick to come up. She continues with dyspnea that is oxygen dependent. She says that she has quit smoking. Exam - Constitutional Vitals: Period Temp Pulse Resp BP Sys/Pham Pulse Ox Last 24 Hr 96.8 F-98.5 F 88-106 16-20 111-153/57-79 92-99 Vital signs are noted above. Heart is regular with distant tones and no murmur. She has some expiratory wheezes and a prolonged expiratory phase. She is awake and alert Results - Labs CBC & BMP: 02/08/17 04:33 02/08/17 04:33 Lab Results: I have reviewed the past 24 hour labs
[2017-02-10] MEDS: ONDANSETRON 4 MG/2 ML VIAL IV PRN ×2 (12:17→17:27)
[2017-02-10] MEDS: ACETYLCYSTEINE 20% 800 MG/4 ML VIAL RESP TX SCH ×2 (13:00→19:41)
[2017-02-11] MEDS: ACETYLCYSTEINE 20% 800 MG/4 ML VIAL RESP TX SCH ×5 (00:19→19:22)
[2017-02-11] MEDS: ALBUTEROL/IPRATROPIUM 3 ML NEB RESP TX SCH ×5 (00:19→19:18)
[2017-02-11] MEDS: PIPERACILLIN/TAZOBACTAM 3,375 MG in SODIUM CHLORIDE 0.9% 100 ML IV SCH ×3 (01:54→16:38)
[2017-02-11] MEDS: methylPREDNISolone SOD SUC 40 MG/1 ML VIAL IV SCH ×3 (01:55→16:34)
[2017-02-11] MEDS: ONDANSETRON 4 MG/2 ML VIAL IV PRN ×2 (02:06→15:29)
[2017-02-11] MEDS: LEVOTHYROXINE 100 MCG TABLET PO SCH (06:35)
[2017-02-11] MEDS: DULoxetine 30 MG CAPSULE PO SCH (08:00)
[2017-02-11] MEDS: ENOXAPARIN 40 MG/0.4 ML SYRINGE SUBCUT SCH (08:01)
[2017-02-11] MEDS: DIVALPROEX 500 MG TABLET PO SCH ×2 (08:01→21:20)
[2017-02-11] MEDS: METHADONE 10 MG TABLET PO SCH (08:02)
[2017-02-11] MEDS: MELOXICAM 7.5 MG TABLET PO SCH (08:03)
[2017-02-11] MEDS: PANTOPRAZOLE 40 MG TABLET PO SCH (08:04)
[2017-02-11] MEDS: AZITHROMYCIN 250 MG TABLET PO SCH (08:04)
--- NOTE | 2017-02-11 10:41 | Pulmonology Progress Note ---
Pulmonary - PN: Subj Interval history: Patient is a 46-year-old white lady that has COPD and came in with bilateral pneumonia. She apparently has been very ill but is getting better. She feels like her breathing is much better now. She still is requiring oxygen and get short of breath easily. She still has having trouble clearing secretions. She seems to be tolerating her treatments okay. Exam (Progress Note) - Constitutional Vitals: Period Temp Pulse Resp BP Sys/Pham Pulse Ox Last 24 Hr 96.8 F-98.5 F 58-105 18-20 125-155/70-91 94-100 Exam: General appearance: under weight, other (She looks chronically ill but is comfortable at rest. She still has a harsh cough and shortness of breath) - Head Head exam: Present: normal inspection, normocephalic - Eye Eye exam: Present: EOMI. Absent: scleral icterus Pupils: Present: ZEE - ENT ENT exam: Present: normal exam - Neck Neck exam: Absent: lymphadenopathy, thyromegaly - Respiratory Respiratory exam: Present: She has coarse breath sounds bilaterally with some mild rhonchi. - Cardiovascular Cardiovascular exam: Present: regular rate and rhythm. Absent: gallop, systolic murmur - GI/Abdominal GI/Abdominal exam: Present: normal bowel sounds, soft. Absent: organomegaly, tenderness - Extremities Exam Extremities exam: Present: other (She has had a left arm amputation). Absent: calf tenderness, edema - Neurological Exam Neurological exam: Present: alert, oriented X3, CN II-XII intact - Psychiatric Psychiatric exam: Absent: anxious - Skin Skin exam: Present: warm, dry Results - Labs CBC & BMP: 02/08/17 04:33 02/08/17 04:33 Assessment and Plan (1) Anal cancer Status: Chronic Assessment and plan: This is felt to be in remission. Current Visit: No (2) History of seizure disorder Status: Chronic Assessment and plan: She is getting treatment for seizures but no active seizures now. Current Visit: No (3) Hypothyroidism Status: Chronic Assessment and plan: She will continue with thyroid replacement. Current Visit: Yes (4) Pneumonia Status: Acute Assessment and plan: She has bilateral pneumonia that is improving. She is tolerating her therapy. She still has trouble clearing secretions. She may need a therapeutic bronchoscopy. Will check a chest x-ray tomorrow. Current Visit: Yes Qualifiers: Pneumonia type: due to unspecified organism Laterality: bilateral Lung location: lower lobe of lung Qualified Code(s): J18.9 - Pneumonia, unspecified organism (5) Chronic kidney disease Status: Chronic Assessment and plan: Her creatinine was last checked at 1.4. Current Visit: Yes (6) Tobacco abuse Status: Acute Assessment and plan: She certainly needs to quit smoking. Current Visit: Yes (7) COPD (chronic obstructive pulmonary disease) Status: Acute Assessment and plan: He will continue treatment for COPD. Her wheezing has improved. Current Visit: Yes
--- NOTE | 2017-02-11 11:09 | Hospitalist Progress Note ---
Assessment and Plan (1) Pneumonia Status: Acute Assessment and plan: Impression: 1. Bilateral pneumonia, organism not known. This could be pulmonary vascular congestion, although she has no documented history of congestive heart failure 2. COPD with acute exacerbation 3. Nicotine addiction Plan: Continue current antibiotics, bronchodilators, and steroids. Recheck chest x- ray in the morning. This note was completed using [employer] voice recognition software. There may be hydraulics engineer errors as a result. Current Visit: Yes Qualifiers: Pneumonia type: due to unspecified organism Laterality: bilateral Lung location: lower lobe of lung Qualified Code(s): J18.9 - Pneumonia, unspecified organism Hospitalist: Subjective Interval history: Follow-up pneumonia with COPD exacerbation. The patient says that her dyspnea is not much better. She continues with a cough and some sputum production. We appreciate pulmonary recommendations. Exam - Constitutional Vitals: Period Temp Pulse Resp BP Sys/Pham Pulse Ox Last 24 Hr 96.8 F-98.5 F 58-105 18-20 125-155/70-91 94-100 Vital signs are noted above. Heart is regular with distant tones and no murmur. She has a few scattered wheezes, but the chest sounds clear than yesterday. She is awake and alert. Results - Labs CBC & BMP: 02/08/17 04:33 02/08/17 04:33
[2017-02-11] MEDS: THEOPHYLLINE ER (24 HR) 400 MG CAPSULE PO SCH (12:10)
[2017-02-12] MEDS: ACETYLCYSTEINE 20% 800 MG/4 ML VIAL RESP TX SCH ×2 (00:43→07:20)
[2017-02-12] MEDS: ALBUTEROL/IPRATROPIUM 3 ML NEB RESP TX SCH ×3 (00:43→13:36)
[2017-02-12] MEDS: methylPREDNISolone SOD SUC 40 MG/1 ML VIAL IV SCH (01:01)
[2017-02-12] MEDS: PIPERACILLIN/TAZOBACTAM 3,375 MG in SODIUM CHLORIDE 0.9% 100 ML IV SCH ×3 (01:07→17:02)
[2017-02-12] MEDS: ONDANSETRON 4 MG/2 ML VIAL IV PRN (03:20)
[2017-02-12] MEDS: LEVOTHYROXINE 100 MCG TABLET PO SCH (07:46)
--- NOTE | 2017-02-12 07:55 | Pulmonology Progress Note ---
Pulmonary - PN: Subj Interval history: This 46-year-old white female came out after 3 days history of cough congestion fever and shortness of breath. She had pretty severe hypoxemia yesterday and has been requiring a Ventimask. This morning her oxygen saturation is 99% on 40 % Ventimask. She feels a little better. Will change her to nasal byproducts. Appetite is not good and she has been encouraged to drink 9 supplements. She is a long-term smoker and certainly has COPD. She has a history of multiple malignancies in the past. 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 02/12/2017 patient is feeling better. Chest x-ray is markedly improved in 3 days. Her bronchopneumonia is improved. Probably had some interstitial edema since it cleared so quickly. She is not wheezing. At this point I think we can reduce her steroids. Probably could go to oral medications and plan discharge in another day or so. Exam (Progress Note) - Constitutional Vitals: Period Temp Pulse Resp BP Sys/Pham Pulse Ox Last 24 Hr 97.3 F-98.5 F 72-96 16-20 125-151/66-87 94-99 Exam: She is alert responsive. Vital signs normal. Pupils react to light. Throat is clear. O2 sat in upper 90s on nasal byprongs. Neck is supple. Chest is clear to auscultation. Heart normal rate and rhythm no murmurs. Abdomen soft nontender no masses. No organomegaly. Extremities no clubbing cyanosis or edema. Calves nontender. Results - Labs CBC & BMP: 02/08/17 04:33 02/08/17 04:33 Lab Results: I have reviewed the past 24 hour labs - Diagnostic Findings Procedure: Chest x-ray: image reviewed by me (Chest x-ray is essentially clear now.) Assessment and Plan (1) Anal cancer Status: Chronic Assessment and plan: Previously treated and felt to be in remission. Current Visit: No (2) Chronic anemia Status: Chronic Assessment and plan: Hematocrit 25. Probably would be a good idea to have oncology to see her. Dr. Ching has seen her in the past. 02/09/2017 following this. Again we need to have oncology check back again on her. 02/12/2017 oncology will be following this. Current Visit: No (3) Renal cell carcinoma of left kidney Status: Resolved Assessment and plan: She has had the left kidney resected Current Visit: No (4) History of seizure disorder Status: Chronic Assessment and plan: Limits her choices in antibiotics. We had considered Levaquin and Merrem but both of which can lower the seizure threshold so we did not give him. 02/09/2017 continuing seizure medications. That would be Depakote. We are avoiding antibiotics that might lower the seizure threshold. 02/12/2017 no seizures here. Current Visit: No (5) Pneumonia Status: Acute Assessment and plan: Broad-spectrum antibiotics. Patient then is a smoker with underlying COPD and history of multiple cancers likely immunocompromised. 02/09/2017 she has a bilateral extensive bronchopneumonia. She is on broad- spectrum antibiotics. Cultures are pending. Follow-up x-ray tomorrow. 02/12/2017 chest x-ray markedly improved and essentially back to normal. She does have hyperinflation Current Visit: Yes Qualifiers: Pneumonia type: due to unspecified organism Laterality: bilateral Lung location: lower lobe of lung Qualified Code(s): J18.9 - Pneumonia, unspecified organism (6) Tobacco abuse Status: Acute Assessment and plan: She states that she will no longer smoke. We have been encouraging each day. 02/12/17 we have discussed the need to discontinue smoking again. Current Visit: Yes (7) COPD (chronic obstructive pulmonary disease) Status: Acute Assessment and plan: COPD with exacerbation. This is improved with current medications. Needs long- term controller medication such as Anoro. Current Visit: Yes
[2017-02-12] MEDS ORDERED: methylPREDNISolone SOD SUC 40 MG/1 ML VIAL IV SCH (09:00)
[2017-02-12] MEDS: ENOXAPARIN 40 MG/0.4 ML SYRINGE SUBCUT SCH (09:18)
[2017-02-12] MEDS: MELOXICAM 7.5 MG TABLET PO SCH (09:18)
[2017-02-12] MEDS: DIVALPROEX 500 MG TABLET PO SCH (09:18)
[2017-02-12] MEDS: THEOPHYLLINE ER (24 HR) 400 MG CAPSULE PO SCH (09:19)
[2017-02-12] MEDS: AZITHROMYCIN 250 MG TABLET PO SCH (09:19)
[2017-02-12] MEDS: PANTOPRAZOLE 40 MG TABLET PO SCH (09:19)
[2017-02-12] MEDS: METHADONE 10 MG TABLET PO SCH (09:19)
[2017-02-12] MEDS: DULoxetine 30 MG CAPSULE PO SCH (09:20)
--- NOTE | 2017-02-12 09:29 | XRay Report ---
History: Pneumonia Date: 02/12/2017 Study: Chest x-ray AP portable Comparison exam: February 10, 2017 The right subclavian Mediport-type catheter is well-positioned. The cardiomediastinal silhouette is unremarkable. The pulmonary vasculature is not engorged. The previous diffuse bilateral infiltrate/pulmonary edema has nearly resolved, with only some minimal residual groundglass opacity persisting. There is no new or worsening infiltrate. There is no pleural effusion. Osseous structures are unchanged. Impression: Near complete resolution of the bilateral pulmonary infiltrate/edema compared to the previous study PROCEDURE INTERPRETED AT [facility] DEPARTMENT OF RADIOLOGY Final Report Signed by: Dr. Marcy Baker
--- NOTE | 2017-02-12 12:04 | Discharge Summary ---
Hospital Course - Hospital Course Hospital Course: 36-year-old female with a history of vulvar, anal and renal carcinoma , seizures on methadone for chronic pain admitted for shortness of breath. Chest x-ray showed bilateral pneumonia. Patient is a smoker. She was hypoxic requiring oxygen. She was placed on Rocephin and azithromycin IV and given duo nebs every 6 hours and Solu-Medrol IV. Pulmonary was consulted and felt she had extensive bilateral bronchopneumonia. Rocephin was changed to Zosyn by Dr. Herrmann on the . Patient has made remarkable recovery over the weekend and insist on leaving today. Patient did receive her methadone of 60 mg since and admission and received her dose this morning. She has personally asked me in the presence of the nurse to fax her discharge summary to the methadone clinic. She has provided me with the fax number of [phone]. Repeat chest x-ray on February 12, 2017 Chest xray shows near complete resolution the bilateral infiltrates. Patient is saturating 97% on room air. We will send her home on Augmentin with a weaning dose of steroids. I would recommend follow-up with Dr. Herrmann as an outpatient. Would also recommend follow-up with her primary care physician in 1-2 weeks. Patient would like nicotine patches as she is going to attempt to quit. She was also needed nebulizer machine for home. - Time spent with patient Time with patient DS: Less than 30 minutes (25 min) Discharge Plan - Discharge Data Disposition: Disch To Home/Self Care Condition at Discharge: Stable Discharge Diet: heart healthy Activity: resume usual activities as tolerated Hygiene: no restrictions Weight Bearing at Discharge: full weight bearing Driving: no restrictions - Discharge Medications New Albuterol Sulfate [Proair HFA] 2 puff INH Q4H PRN #1 inhaler PRN Reason: Shortness Of Breath/Wheezing Albuterol/Ipratropium Neb [Duoneb] 3 ml RESP TX RT Q6H #120 vial Amoxicillin/Clav Tab [Augmentin Tab] 875 mg PO BID #10 tablet Nicotine 21 mg/24 Hr Patch [Nicoderm CQ 21 mg/24 hr Patch] 1 patch TRANSDERM DAILY #42 patch predniSONE TAB [PredniSONE] 20 mg PO DAILY #20 tablet Theophylline ER Cap (24 Hr) [Rafael-24] 400 mg PO DAILY #30 capsule guaiFENesin ER TAB [Mucinex] 1,200 mg PO BID #60 tablet Continue Divalproex [Depakote] 1,000 mg PO BID Duloxetine HCl [Cymbalta] 60 mg PO QAM Pantoprazole Tab [Protonix Tab] 40 mg PO DAILY #30 tablet Methadone HCl 60 mg PO DAILY Meloxicam [Mobic] 15 mg PO DAILY Levothyroxine Tab [Synthroid Tab] 100 mcg PO DAILY Discontinued traZODone [Desyrel] 100 mg PO BEDTIME - Follow Up or Referral Follow Up: dr chencho [Other] - 1 Week Sameer Herrmann MD [Physician] - 2 Weeks - Forms/Instructions Additional Discharge Instructions: nebulizer machine for home Exam - Constitutional Vitals: Period Temp Pulse Resp BP Sys/Pham Pulse Ox Last 24 Hr 97.3 F-98.2 F 72-95 16-20 121-151/66-87 94-99 General appearance: normal weight, no acute distress - Respiratory Respiratory exam: Present: clear to auscultation bilaterally, decreased breath sounds. Absent: rhonchi, wheezes - Cardiovascular Cardiovascular exam: Present: regular rate and rhythm. Absent: systolic murmur - GI/Abdominal GI/Abdominal exam: Present: normal bowel sounds, soft. Absent: tenderness - Extremities Exam Extremities exam: Present: normal inspection, normal capillary refill Discharge Results Procedures and tests throughout hospitalization: Pending Orders 02/07/17 Blood Culture Stat 02/13/17 04:00 Basic Metabolic Panel IN AM CBC [Comp Blood Count Auto Diff] IN AM Labs on day of discharge: Labs from last 24 hours 02/12/17 10:11 Theophylline 4.8 L Preliminary micro results at discharge 02/07/17 Unknown Blood Culture - Preliminary Blood No growth at 3 days 02/07/17 Unknown Blood Culture - Preliminary Blood No growth at 3 days DS: Provider Date of admission: 02/07/17 22:04 Primary care physician: Filiberto Copeland MD Attending physician on admission: Isrrael Jimenez MD Consults: 02/07/17 22:35 Consult to Physician [CONS] Routine Comment: Pneumonia Consulting Provider: Sameer Herrmann Person Notified: [email or web address] Date Notified: 02/08/17 Time Notified: 08:42 Discharging clinician: Ciara Salazar MD
[2017-02-12 16:23] VITALS: BP 116/80
--- NOTE | 2017-02-13 13:47 | Physician Query Form ---
CLICK EDIT DOCUMENT TO SELECT QUERY ANSWER --> OK --> SIGN Sylvia Padilla RN, CCDS Certified Clinical Manager Of Compensation W) [phone] (f) [phone] [email or web address]: Make your selection(s) from the choices in EACH section by typing an "x" and enter comments in the comment section. Please use your independent medical judgment in providing your response. This request does not imply that any particular answer is desired or expected. CLINICAL INDICATORS: (Providers should not edit this section) The below diagnosis was documented in the record, but is not consistently noted in subsequent documentation. The chart indicates "Patient with pneumonia on chest x-ray and on physical exam. She is hypoxic, tachycardic, tachypneic and febrile. She meets criteria for sepsis with unknown source of pneumonia". ---Heart Rate of 97# in the ER---- - Resp of 22 in the ER----NO temperature during the hospital stay---Normal WBC-- -Normal Lactic Acid Level---As the attending MD can you please clarify if the SEPSIS was ? Diagnosis: SEPSIS Please clarify the following: (x ) The above diagnosis was monitored, evaluated, and/or treated and is a confirmed diagnosis ( ) The above diagnosis was ruled out ( ) The above diagnosis is still a likely, suspected, probable diagnosis ( ) Other, please specify: ( ) Clinically unable to determine COMMENTS: PLEASE ALSO DOCUMENT RESPONSE IN PROGRESS NOTES AND/OR DISCHARGE SUMMARY Use of terms such as suspected, likely, or probable (associated with a specific diagnosis that is being evaluated, monitored, or treated as if it exists) are acceptable and can be restated in the discharge summary if not ruled out. MTDD
== END 2017-02-12 17:10 | disposition home or self-care (01) | DRG 871 ==
LOC: N.ED 20:02 → SUATTDRO 22:04 → N.EDINP 22:04 → N.2E 22:31
PROVIDERS: ADMIT Family Medicine; ATTEND Internal Medicine

== ENCOUNTER 2018-07-09 00:47 | Inpatient (IN) ==
[2018-07-09] MEDS ORDERED: PROPOFOL 1,000 MG/100 ML BOTTLE IV ONE (01:01)
[2018-07-09] MEDS ORDERED: SODIUM CHLORIDE 0.9% 1,000 ML IV STA (01:02)
[2018-07-09] MEDS ORDERED: ONDANSETRON 4 MG/2 ML VIAL IV STA (01:02)
[2018-07-09] MEDS: PROPOFOL 1,000 MG/100 ML BOTTLE IV SCH ×4 (01:20→23:10)
[2018-07-09 01:24] LABS: Basophils # 0.1 10*3/uL (0.0-0.2); Basophils % 0.7 % (0.0-0.8); Eosinophils # 0.1 10*3/uL (0.0-0.87); Eosinophils % 0.7 % (0.00-10.9); Hematocrit 37.7 VOL% (35.7-47.0); Hemoglobin 11.9 GM/DL (12.0-16.0); Immature Granulocytes % 0.4 %; Immature Granulocytes Absolute 0.04 #; Lymphocytes # 0.9 10*3/uL (1.4-4.0); Lymphocytes % 9.6 % (21.3-54.2); Mean Corpuscular HGB Conc 31.6 GM/DL (32-36); Mean Corpuscular Hemoglobin 29 PG (27-34); Mean Corpuscular Volume 91.7 FL (87-102); Mean Platelet Volume 9.9 FL (9.6-12.0); Monocytes # 0.3 10*3/uL (0.11-0.8); Monocytes % 3.3 % (1.7-12.7); Neutrophils # 8.1 10*3/uL (1.4-7.4); Neutrophils % 85.3 % (38.7-73.9); Platelet Count 280 T/CUMM (130-400); Red Blood Count 4.11 MC/CUMM (3.8-5.5); Red Cell Distribution Width 15.5 % (9.3-17.3); White Blood Count 9.6 T/CUMM (4-12)
[2018-07-09 01:32] LABS: INR 0.9; PT Patient Result 9.6 SECS
[2018-07-09 01:39] LABS: Apearance,Urine CLEAR (Clear); Bacteria,Urine Occasional /HPF (Few); Bilirubin,Urine Negative (Negative); Blood, Urine Small mg/dL (Negative); Glucose,Urine (UA) Negative (Negative); Ketones,Urine Negative (Negative); Mucus,Urine Occasional /LPF (Occasional); Nitrite,Urine Negative (Negative); Protein,Urine Negative; RBC,Urine 1 /HPF (0-4); Squamous Epithelial Cell,Urine Occasional /HPF (0-10); Urine Color Yellow (Yellow); Urine Specific Gravity 1.009 (1.001-1.035); Urine Urobilinogen < 2.0 EU/DL (0.2-1.0); WBC,Urine 3 /HPF (0-6)
[2018-07-09 01:40] LABS: Acetaminophen < 2.0 UG/ML (10-30); Salicylate 6.2 MG/DL (2.8-20)
[2018-07-09 01:42] LABS: Alanine Aminotransferase 13 U/L (13-56); Albumin 3.5 G/DL (3.4-5.0); Alkaline Phosphatase 132 U/L (45-117); Aspartate Amino Transferase 8 U/L (0-37); Bilirubin,Total < 0.39 MG/DL (0.2-1.0); Blood Urea Nitrogen 28 MG/DL (7-18); Calcium 8.5 MG/DL (8.5-10.1); Glucose 124 MG/DL (74-106); Osmolality,Calculated 285.4 MOS/KG (273-304); Sodium 140 MMOL/L (136-145); Total Protein 7.4 G/DL (6.4-8.3)
[2018-07-09] MEDS ORDERED: ROCURONIUM 100 MG/10 ML VIAL IV STA (01:50)
[2018-07-09 01:51] LABS: ABG Base Excess -7.4 MMOL/L (-2.5-2.5); ABG HCO3 18.4 MMOL/L (20-26); ABG PCO2 39.7 MM HG (35-48); ABG PH 7.285 (7.35-7.45); Allen Test Positive; Pt O2 Delivery Device Ventilator
[2018-07-09 01:51] LABS: Troponin I < 0.015 NG/ML (0.00-0.045)
[2018-07-09] MEDS ORDERED: ETOMIDATE 20 MG/10 ML VIAL IV ONE (01:54)
[2018-07-09] MEDS ORDERED: VECURONIUM 10 MG VIAL IV ONE (01:55)
[2018-07-09 02:11] LABS: Barbiturates Screen,Urine Negative (Negative); Benzodiazepines Screen,Urine Negative (Negative); Cannabinoid Screen,Urine Positive (Negative); Opiate Screen,Urine Negative (Negative); Phencyclidine Screen,Urine Negative (Negative)
[2018-07-09] MEDS ORDERED: fentaNYL 100 MCG/2 ML VIAL IV STA (02:18)
[2018-07-09] MEDS ORDERED: fentaNYL 100 MCG/2 ML VIAL ONE (02:20)
[2018-07-09] MEDS ORDERED: ALBUTEROL 2.5 MG/3 ML NEB RESP TX PRN (02:52)
[2018-07-09] MEDS ORDERED: hydrALAZINE 20 MG/1 ML VIAL ONE (03:04)
[2018-07-09] MEDS ORDERED: hydrALAZINE 20 MG/1 ML VIAL IV STA (03:13)
[2018-07-09] MEDS: SODIUM CHLORIDE 0.9% 1,000 ML IV SCH ×3 (03:38→23:37)
[2018-07-09] MEDS: hydrALAZINE 20 MG/1 ML VIAL IV PRN ×2 (04:14→05:59)
[2018-07-09 06:48] LABS: Basophils % 0.4 % (0.0-0.8); Eosinophils % 0.4 % (0.00-10.9); Hemoglobin 12.7 GM/DL (12.0-16.0); Immature Granulocytes % 0.4 %; Immature Granulocytes Absolute 0.04 #; Lymphocytes # 1.2 10*3/uL (1.4-4.0); Lymphocytes % 12.2 % (21.3-54.2); Mean Corpuscular HGB Conc 32.6 GM/DL (32-36); Mean Corpuscular Hemoglobin 29 PG (27-34); Mean Corpuscular Volume 88.6 FL (87-102); Mean Platelet Volume 9.6 FL (9.6-12.0); Monocytes # 0.4 10*3/uL (0.11-0.8); Monocytes % 4.1 % (1.7-12.7); Neutrophils # 8.4 10*3/uL (1.4-7.4); Neutrophils % 82.5 % (38.7-73.9); Platelet Count 303 T/CUMM (130-400); Red Cell Distribution Width 15.4 % (9.3-17.3); White Blood Count 10.2 T/CUMM (4-12)
[2018-07-09 07:16] LABS: Alanine Aminotransferase 14 U/L (13-56); Albumin 3.4 G/DL (3.4-5.0); Alkaline Phosphatase 136 U/L (45-117); Aspartate Amino Transferase 9 U/L (0-37); Bilirubin,Total < 0.39 MG/DL (0.2-1.0); Blood Urea Nitrogen 24 MG/DL (7-18); Calcium 8.5 MG/DL (8.5-10.1); Glucose 114 MG/DL (74-106); Osmolality,Calculated 279.7 MOS/KG (273-304); Potassium 3.9 MMOL/L (3.5-5.1); Sodium 138 MMOL/L (136-145); Total Protein 7.3 G/DL (6.4-8.3)
[2018-07-09 07:36] LABS: ABG Base Excess -5.7 MMOL/L (-2.5-2.5); ABG HCO3 16.9 MMOL/L (20-26); ABG Oxygen Saturation 97.7 % (95-100); ABG PCO2 26.2 MM HG (35-48); ABG PH 7.428 (7.35-7.45); ABG PO2 105.8 MM HG (80-95); ABG TCO2 17.7 MMOL/L (23-27); Pt O2 Delivery Device Ventilator
[2018-07-09] MEDS: LORazepam 2 MG/1 ML VIAL IV PRN (08:09)
[2018-07-09] MEDS: ENOXAPARIN 40 MG/0.4 ML SYRINGE SUBCUT SCH (09:38)
[2018-07-09] MEDS: PANTOPRAZOLE 40 MG VIAL IV SCH (09:38)
[2018-07-09] MEDS ORDERED: PNEUMOCOCCAL VACCINE (23 VALENT) 0.5 ML VIAL IM ONE (12:37)
[2018-07-09] MEDS ORDERED: INFLUENZA VIRUS VACCINE 0.5 ML SYRINGE IM ONE (12:37)
[2018-07-09] MEDS ORDERED: DEXTROSE 50% 25 GM/50 ML SYRINGE IV PRN (12:42)
[2018-07-09] MEDS ORDERED: GLUCAGON 1 MG VIAL IM PRN (12:42)
[2018-07-09] MEDS: QUEtiapine 100 MG TABLET PO SCH (20:48)
[2018-07-09] MEDS: DIVALPROEX 250 MG TABLET PO SCH (20:48)
[2018-07-10 03:54] LABS: ABG Base Excess -3.6 MMOL/L (-2.5-2.5); ABG HCO3 21.5 MMOL/L (20-26); ABG Oxygen Saturation 98.7 % (95-100); ABG PCO2 28.3 MM HG (35-48); ABG PH 7.442 (7.35-7.45); ABG TCO2 16.9 MMOL/L (23-27); Allen Test Positive; Pt O2 Delivery Device Ventilator
[2018-07-10] MEDS: PROPOFOL 1,000 MG/100 ML BOTTLE IV SCH ×5 (05:21→20:26)
[2018-07-10 05:49] LABS: Basophils % 0.2 % (0.0-0.8); Hematocrit 36.1 VOL% (35.7-47.0); Hemoglobin 11.6 GM/DL (12.0-16.0); Immature Granulocytes % 0.4 %; Immature Granulocytes Absolute 0.05 #; Lymphocytes # 0.7 10*3/uL (1.4-4.0); Lymphocytes % 5.3 % (21.3-54.2); Mean Corpuscular HGB Conc 32.1 GM/DL (32-36); Mean Corpuscular Hemoglobin 29 PG (27-34); Mean Corpuscular Volume 89.1 FL (87-102); Mean Platelet Volume 10.6 FL (9.6-12.0); Monocytes # 0.4 10*3/uL (0.11-0.8); Neutrophils # 11.8 10*3/uL (1.4-7.4); Neutrophils % 91.1 % (38.7-73.9); Platelet Count 265 T/CUMM (130-400); Red Blood Count 4.05 MC/CUMM (3.8-5.5); Red Cell Distribution Width 15.4 % (9.3-17.3); White Blood Count 12.9 T/CUMM (4-12)
[2018-07-10 06:05] LABS: Calcium 8.6 MG/DL (8.5-10.1); Osmolality,Calculated 286.1 MOS/KG (273-304); Potassium 3.6 MMOL/L (3.5-5.1)
[2018-07-10 06:10] LABS: Prealbumin 32.2 MG/DL (20-40)
[2018-07-10 06:11] LABS: Band Neutrophils 6 % (0-10); Lymphocytes 6 % (20-55); Platelet Estimate Normal; Segmented Neutrophils 84 % (50-85); Total Cells Counted 100
[2018-07-10] MEDS: LEVOTHYROXINE 112 MCG TABLET PO SCH (06:23)
[2018-07-10] MEDS: QUEtiapine 100 MG TABLET PO SCH ×2 (08:19→20:19)
[2018-07-10] MEDS: DIVALPROEX 250 MG TABLET PO SCH ×2 (08:19→20:18)
[2018-07-10] MEDS: PANTOPRAZOLE 40 MG VIAL IV SCH (08:19)
[2018-07-10] MEDS: ENOXAPARIN 40 MG/0.4 ML SYRINGE SUBCUT SCH (08:19)
[2018-07-10] MEDS: LORazepam 2 MG/1 ML VIAL IV PRN (08:42)
[2018-07-10] MEDS: SODIUM CHLORIDE 0.9% 1,000 ML IV SCH ×3 (10:06→20:19)
[2018-07-10] MEDS: VANCOMYCIN INJ 1,000 MG in SODIUM CHLORIDE 0.9% 250 ML IV SCH ×2 (10:26→22:55)
[2018-07-10] MEDS: PIPERACILLIN/TAZOBACTAM 3,375 MG in SODIUM CHLORIDE 0.9% 100 ML IV SCH ×2 (12:02→19:42)
[2018-07-10] MEDS: METOPROLOL TARTRATE 25 MG TABLET PER TUBE SCH ×2 (12:49→20:18)
[2018-07-11] MEDS: PROPOFOL 1,000 MG/100 ML BOTTLE IV SCH (01:04)
[2018-07-11] MEDS: PIPERACILLIN/TAZOBACTAM 3,375 MG in SODIUM CHLORIDE 0.9% 100 ML IV SCH ×3 (04:00→19:00)
[2018-07-11 05:08] LABS: ABG Base Excess -1.2 MMOL/L (-2.5-2.5); ABG HCO3 23.4 MMOL/L (20-26); ABG Oxygen Saturation 96.2 % (95-100); ABG PCO2 30.9 MM HG (35-48); ABG PH 7.458 (7.35-7.45); ABG PO2 80.9 MM HG (80-95); ABG TCO2 19.7 MMOL/L (23-27); Allen Test Positive; Pt O2 Delivery Device Ventilator
[2018-07-11 05:34] LABS: Basophils % 0.3 % (0.0-0.8); Eosinophils # 0.1 10*3/uL (0.0-0.87); Eosinophils % 0.8 % (0.00-10.9); Hematocrit 31.7 VOL% (35.7-47.0); Hemoglobin 10.2 GM/DL (12.0-16.0); Immature Granulocytes % 0.6 %; Immature Granulocytes Absolute 0.06 #; Lymphocytes % 9.3 % (21.3-54.2); Mean Corpuscular HGB Conc 32.2 GM/DL (32-36); Mean Corpuscular Hemoglobin 29 PG (27-34); Mean Corpuscular Volume 90.3 FL (87-102); Mean Platelet Volume 10.5 FL (9.6-12.0); Monocytes # 0.4 10*3/uL (0.11-0.8); Monocytes % 3.6 % (1.7-12.7); Neutrophils # 8.7 10*3/uL (1.4-7.4); Neutrophils % 85.4 % (38.7-73.9); Platelet Count 248 T/CUMM (130-400); Red Blood Count 3.51 MC/CUMM (3.8-5.5); Red Cell Distribution Width 15.9 % (9.3-17.3); White Blood Count 10.2 T/CUMM (4-12)
[2018-07-11 05:55] LABS: Calcium 8.3 MG/DL (8.5-10.1); Osmolality,Calculated 293.6 MOS/KG (273-304); Potassium 3.6 MMOL/L (3.5-5.1)
[2018-07-11] MEDS: LORazepam 2 MG/1 ML VIAL IV PRN ×8 (05:55→23:15)
[2018-07-11 06:04] LABS: Hypochromasia 1+; Ovalocytes Slight; Platelet Estimate Adequate
[2018-07-11] MEDS: SODIUM CHLORIDE 0.9% 1,000 ML IV SCH ×4 (06:11→23:38)
[2018-07-11] MEDS: GABAPENTIN 300 MG CAPSULE PO PRN (07:58)
[2018-07-11] MEDS: PANTOPRAZOLE 40 MG VIAL IV SCH (07:59)
[2018-07-11] MEDS: DIVALPROEX 250 MG TABLET PO SCH ×2 (08:00→20:57)
[2018-07-11] MEDS: QUEtiapine 100 MG TABLET PO SCH (08:00)
[2018-07-11] MEDS: METOPROLOL TARTRATE 25 MG TABLET PER TUBE SCH ×2 (08:00→20:58)
[2018-07-11] MEDS ORDERED: HALOPERIDOL 5 MG/ML AMP IM ONE (08:15)
[2018-07-11] MEDS: LEVOTHYROXINE 112 MCG TABLET PO SCH (08:48)
[2018-07-11] MEDS: ENOXAPARIN 40 MG/0.4 ML SYRINGE SUBCUT SCH (10:10)
[2018-07-11] MEDS: busPIRone 10 MG TABLET PO SCH ×3 (10:10→20:57)
[2018-07-11] MEDS: FERROUS SULFATE 325 MG TABLET PO SCH (10:10)
[2018-07-11] MEDS: DULoxetine 30 MG CAPSULE PO SCH (10:10)
[2018-07-11] MEDS: buPROPion SR 150 MG TABLET PO SCH ×2 (10:11→20:58)
[2018-07-11] MEDS: VANCOMYCIN INJ 1,000 MG in SODIUM CHLORIDE 0.9% 250 ML IV SCH ×2 (10:28→22:00)
[2018-07-11] MEDS ORDERED: ZIPRASIDONE 20 MG/1 ML VIAL IM ONE (14:33)
[2018-07-11] MEDS ORDERED: VECURONIUM 10 MG VIAL IV ONE (17:16)
[2018-07-11] MEDS ORDERED: ETOMIDATE 20 MG/10 ML VIAL IV ONE (17:17)
[2018-07-11] MEDS: ZIPRASIDONE 20 MG/1 ML VIAL IM PRN (17:45)
[2018-07-11] MEDS: traZODone 50 MG TABLET PO SCH (20:57)
[2018-07-11] MEDS: OLANZapine 10 MG VIAL IM PRN (23:01)
[2018-07-12] MEDS: LORazepam 2 MG/1 ML VIAL IV PRN ×8 (01:05→16:15)
[2018-07-12] MEDS: ZIPRASIDONE 20 MG/1 ML VIAL IM PRN (01:29)
[2018-07-12] MEDS: SODIUM CHLORIDE 0.9% 1,000 ML IV SCH ×2 (03:38→08:40)
[2018-07-12] MEDS: PIPERACILLIN/TAZOBACTAM 3,375 MG in SODIUM CHLORIDE 0.9% 100 ML IV SCH ×3 (03:39→18:25)
[2018-07-12] MEDS: hydrALAZINE 20 MG/1 ML VIAL IV PRN (04:49)
[2018-07-12] MEDS: OLANZapine 10 MG VIAL IM PRN ×2 (05:15→12:00)
[2018-07-12] MEDS: LEVOTHYROXINE 112 MCG TABLET PO SCH (06:50)
[2018-07-12] MEDS: PANTOPRAZOLE 40 MG VIAL IV SCH (08:50)
[2018-07-12] MEDS: ENOXAPARIN 40 MG/0.4 ML SYRINGE SUBCUT SCH (08:50)
[2018-07-12] MEDS: DIVALPROEX 250 MG TABLET PO SCH ×2 (08:55→21:57)
[2018-07-12] MEDS: METOPROLOL TARTRATE 25 MG TABLET PER TUBE SCH ×2 (08:55→21:56)
[2018-07-12] MEDS: buPROPion SR 150 MG TABLET PO SCH ×2 (08:55→21:57)
[2018-07-12] MEDS: FERROUS SULFATE 325 MG TABLET PO SCH (08:55)
[2018-07-12] MEDS: DULoxetine 30 MG CAPSULE PO SCH (08:55)
[2018-07-12] MEDS: GABAPENTIN 300 MG CAPSULE PO PRN ×2 (08:55→21:57)
[2018-07-12] MEDS: busPIRone 10 MG TABLET PO SCH ×3 (08:55→21:57)
[2018-07-12] MEDS: VANCOMYCIN INJ 1,000 MG in SODIUM CHLORIDE 0.9% 250 ML IV SCH ×2 (09:00→21:57)
[2018-07-12] MEDS: traZODone 50 MG TABLET PO SCH (21:56)
[2018-07-13] MEDS: LORazepam 2 MG/1 ML VIAL IV PRN ×3 (02:58→20:34)
[2018-07-13] MEDS: PIPERACILLIN/TAZOBACTAM 3,375 MG in SODIUM CHLORIDE 0.9% 100 ML IV SCH ×3 (02:58→23:05)
[2018-07-13] MEDS: ZIPRASIDONE 20 MG/1 ML VIAL IM PRN (02:59)
[2018-07-13] MEDS: LEVOTHYROXINE 112 MCG TABLET PO SCH (07:11)
[2018-07-13] MEDS: PANTOPRAZOLE 40 MG VIAL IV SCH (09:33)
[2018-07-13] MEDS: ENOXAPARIN 40 MG/0.4 ML SYRINGE SUBCUT SCH (09:33)
[2018-07-13] MEDS: DIVALPROEX 250 MG TABLET PO SCH ×2 (09:34→23:06)
[2018-07-13] MEDS: FERROUS SULFATE 325 MG TABLET PO SCH (09:34)
[2018-07-13] MEDS: buPROPion SR 150 MG TABLET PO SCH ×2 (09:34→23:06)
[2018-07-13] MEDS: DULoxetine 30 MG CAPSULE PO SCH (09:34)
[2018-07-13] MEDS: METOPROLOL TARTRATE 25 MG TABLET PER TUBE SCH ×2 (09:34→23:06)
[2018-07-13] MEDS: busPIRone 10 MG TABLET PO SCH ×3 (09:38→23:06)
[2018-07-13] MEDS: VANCOMYCIN INJ 1,000 MG in SODIUM CHLORIDE 0.9% 250 ML IV SCH ×2 (11:04→18:01)
[2018-07-13] MEDS: traZODone 50 MG TABLET PO SCH (23:06)
[2018-07-14] MEDS: LORazepam 2 MG/1 ML VIAL IV PRN ×2 (02:30→14:42)
[2018-07-14] MEDS: ZIPRASIDONE 20 MG/1 ML VIAL IM PRN (02:31)
[2018-07-14] MEDS: LEVOTHYROXINE 112 MCG TABLET PO SCH (06:53)
[2018-07-14] MEDS: PIPERACILLIN/TAZOBACTAM 3,375 MG in SODIUM CHLORIDE 0.9% 100 ML IV SCH ×3 (06:55→23:10)
[2018-07-14] MEDS: METOPROLOL TARTRATE 25 MG TABLET PER TUBE SCH ×2 (09:36→20:50)
[2018-07-14] MEDS: DULoxetine 30 MG CAPSULE PO SCH (09:36)
[2018-07-14] MEDS: DIVALPROEX 250 MG TABLET PO SCH ×2 (09:36→20:49)
[2018-07-14] MEDS: busPIRone 10 MG TABLET PO SCH ×3 (09:36→20:49)
[2018-07-14] MEDS: ENOXAPARIN 40 MG/0.4 ML SYRINGE SUBCUT SCH (09:36)
[2018-07-14] MEDS: FERROUS SULFATE 325 MG TABLET PO SCH (09:36)
[2018-07-14] MEDS: buPROPion SR 150 MG TABLET PO SCH ×2 (09:36→20:50)
[2018-07-14] MEDS: PANTOPRAZOLE 40 MG VIAL IV SCH (09:37)
[2018-07-14] MEDS: NICOTINE 21 MG/24 HR PATCH TRANSDERM SCH (11:39)
[2018-07-14] MEDS: VANCOMYCIN INJ 1,000 MG in SODIUM CHLORIDE 0.9% 250 ML IV SCH (11:40)
[2018-07-14] MEDS: traZODone 50 MG TABLET PO SCH (20:49)
[2018-07-15 04:20] LABS: Basophils % 0.4 % (0.0-0.8); Eosinophils # 0.3 10*3/uL (0.0-0.87); Hematocrit 31.3 VOL% (35.7-47.0); Hemoglobin 9.8 GM/DL (12.0-16.0); Immature Granulocytes % 1.6 %; Immature Granulocytes Absolute 0.08 #; Lymphocytes # 1.7 10*3/uL (1.4-4.0); Lymphocytes % 34.4 % (21.3-54.2); Mean Corpuscular HGB Conc 31.3 GM/DL (32-36); Mean Corpuscular Hemoglobin 28 PG (27-34); Mean Corpuscular Volume 90.7 FL (87-102); Mean Platelet Volume 9.9 FL (9.6-12.0); Monocytes # 0.4 10*3/uL (0.11-0.8); Monocytes % 7.2 % (1.7-12.7); Neutrophils # 2.4 10*3/uL (1.4-7.4); Neutrophils % 49.4 % (38.7-73.9); Platelet Count 263 T/CUMM (130-400); Red Blood Count 3.45 MC/CUMM (3.8-5.5); Red Cell Distribution Width 14.8 % (9.3-17.3); White Blood Count 4.9 T/CUMM (4-12)
[2018-07-15 04:36] LABS: Calcium 8.4 MG/DL (8.5-10.1); Osmolality,Calculated 285.8 MOS/KG (273-304)
[2018-07-15] MEDS: LEVOTHYROXINE 112 MCG TABLET PO SCH (06:42)
[2018-07-15] MEDS: VANCOMYCIN INJ 1,000 MG in SODIUM CHLORIDE 0.9% 250 ML IV SCH (06:42)
[2018-07-15] MEDS: PIPERACILLIN/TAZOBACTAM 3,375 MG in SODIUM CHLORIDE 0.9% 100 ML IV SCH ×3 (07:27→22:22)
[2018-07-15] MEDS ORDERED: MAGNESIUM SULF RIDER 2 GM in PREMIX 1 EACH IV PRN (07:43)
[2018-07-15] MEDS ORDERED: MAGNESIUM SULF RIDER 4 GM in PREMIX 1 EACH IV PRN (07:43)
[2018-07-15] MEDS: ENOXAPARIN 40 MG/0.4 ML SYRINGE SUBCUT SCH (09:43)
[2018-07-15] MEDS: NICOTINE 21 MG/24 HR PATCH TRANSDERM SCH (09:43)
[2018-07-15] MEDS: DULoxetine 30 MG CAPSULE PO SCH (09:44)
[2018-07-15] MEDS: busPIRone 10 MG TABLET PO SCH ×3 (09:45→21:13)
[2018-07-15] MEDS: buPROPion SR 150 MG TABLET PO SCH ×2 (09:45→21:13)
[2018-07-15] MEDS: PANTOPRAZOLE 40 MG VIAL IV SCH (09:45)
[2018-07-15] MEDS: FERROUS SULFATE 325 MG TABLET PO SCH (09:45)
[2018-07-15] MEDS: METOPROLOL TARTRATE 25 MG TABLET PER TUBE SCH (09:45)
[2018-07-15] MEDS: DIVALPROEX 250 MG TABLET PO SCH ×2 (09:49→21:13)
[2018-07-15] MEDS: POTASSIUM CHLORIDE 20 MEQ TABLET PO PRN ×4 (10:43→16:33)
[2018-07-15] MEDS: ONDANSETRON 4 MG/2 ML VIAL IV PRN ×2 (10:48→19:55)
[2018-07-15] MEDS: LORazepam 2 MG/1 ML VIAL IV PRN ×2 (14:30→20:02)
[2018-07-15] MEDS: GABAPENTIN 300 MG CAPSULE PO PRN (19:55)
[2018-07-15] MEDS: METOPROLOL TARTRATE 25 MG TABLET PO SCH (21:14)
[2018-07-15] MEDS: traZODone 50 MG TABLET PO SCH (21:14)
[2018-07-16 04:34] LABS: Calcium 8.4 MG/DL (8.5-10.1); Potassium 3.7 MMOL/L (3.5-5.1)
[2018-07-16] MEDS: LEVOTHYROXINE 112 MCG TABLET PO SCH (06:40)
[2018-07-16] MEDS: POTASSIUM CHLORIDE 20 MEQ TABLET PO PRN ×2 (06:41→09:24)
[2018-07-16] MEDS: PIPERACILLIN/TAZOBACTAM 3,375 MG in SODIUM CHLORIDE 0.9% 100 ML IV SCH (06:41)
[2018-07-16 07:20] VITALS: BP 144/67
[2018-07-16] MEDS ORDERED: LOPERAMIDE 0.2 MG/ML 30 ML/BOTTLE PO ONE (08:33)
[2018-07-16] MEDS ORDERED: PANTOPRAZOLE 40 MG TABLET PO SCH (09:00)
[2018-07-16] MEDS: DIVALPROEX 250 MG TABLET PO SCH (09:21)
[2018-07-16] MEDS: DULoxetine 30 MG CAPSULE PO SCH (09:22)
[2018-07-16] MEDS: NICOTINE 21 MG/24 HR PATCH TRANSDERM SCH (09:22)
[2018-07-16] MEDS: LOPERAMIDE 2 MG CAPSULE PO ONE ×2 (09:22→09:30)
[2018-07-16] MEDS: METOPROLOL TARTRATE 25 MG TABLET PO SCH (09:22)
[2018-07-16] MEDS: FERROUS SULFATE 325 MG TABLET PO SCH (09:22)
[2018-07-16] MEDS: buPROPion SR 150 MG TABLET PO SCH (09:22)
[2018-07-16] MEDS: busPIRone 10 MG TABLET PO SCH (09:22)
[2018-07-16] MEDS: LORazepam 2 MG/1 ML VIAL IV PRN (09:23)
[2018-07-16] MEDS: ENOXAPARIN 40 MG/0.4 ML SYRINGE SUBCUT SCH (09:24)
== END 2018-07-16 10:36 | DRG 917 ==
LOC: EDUNIT# → EDBD → N.ED 00:47 → N.EDINP 02:52 → SUATTDRO 02:52 → N.ICU 06:40 → N.TELEN 07-12 16:51
PROVIDERS: ADMIT Internal Medicine; ATTEND Internal Medicine

== ENCOUNTER 2018-08-06 18:57 | Inpatient (IN) ==
[2018-08-06] MEDS ORDERED: ETOMIDATE 20 MG/10 ML VIAL IV STA (20:18)
[2018-08-06] MEDS ORDERED: ROCURONIUM 100 MG/10 ML VIAL IV STA (20:18)
[2018-08-06 21:21] LABS: ABG Base Excess -6.1 MMOL/L (-2.5-2.5); ABG HCO3 19.5 MMOL/L (20-26); ABG Oxygen Saturation 99.2 % (95-100); ABG PCO2 48.6 MM HG (35-48); ABG PH 7.252 (7.35-7.45); ABG TCO2 19.3 MMOL/L (23-27); Allen Test Positive; Pt O2 Delivery Device Ventilator
[2018-08-06] MEDS ORDERED: PROPOFOL 1,000 MG/100 ML BOTTLE IV ONE (21:25)
[2018-08-06 21:36] LABS: Basophils % 0.8 % (0.0-0.8); Eosinophils % 0.3 % (0.00-10.9); Hematocrit 39.3 VOL% (35.7-47.0); Immature Granulocytes % 0.6 %; Immature Granulocytes Absolute 0.02 #; Lymphocytes # 0.4 10*3/uL (1.4-4.0); Lymphocytes % 11.1 % (21.3-54.2); Mean Corpuscular HGB Conc 30.5 GM/DL (32-36); Mean Corpuscular Hemoglobin 28 PG (27-34); Mean Corpuscular Volume 93.1 FL (87-102); Monocytes # 0.2 10*3/uL (0.11-0.8); Monocytes % 4.4 % (1.7-12.7); Neutrophils % 82.8 % (38.7-73.9); Platelet Count 182 T/CUMM (130-400); Red Blood Count 4.22 MC/CUMM (3.8-5.5); Red Cell Distribution Width 17.2 % (9.3-17.3); White Blood Count 3.6 T/CUMM (4-12)
[2018-08-06] MEDS: PROPOFOL 1,000 MG/100 ML BOTTLE IV SCH (21:45)
[2018-08-06 21:49] LABS: INR 0.9; Partial Thromboplastin Time 24.7 SECS (0-40)
[2018-08-06 21:58] LABS: Albumin 3.6 G/DL (3.4-5.0); Bilirubin,Total 0.5 MG/DL (0.2-1.0); Calcium 8.8 MG/DL (8.5-10.1); Osmolality,Calculated 282.4 MOS/KG (273-304); Potassium 3.7 MMOL/L (3.5-5.1); Total Protein 8.1 G/DL (6.4-8.3)
[2018-08-06 22:40] LABS: Acetaminophen < 2.0 UG/ML (10-30); Salicylate 13.4 MG/DL (2.8-20)
[2018-08-06 23:24] LABS: ABG Base Excess -5.9 MMOL/L (-2.5-2.5); ABG HCO3 19.6 MMOL/L (20-26); ABG Oxygen Saturation 96.2 % (95-100); ABG PCO2 39.3 MM HG (35-48); ABG PH 7.313 (7.35-7.45); ABG PO2 94.5 MM HG (80-95); ABG TCO2 17.8 MMOL/L (23-27); Allen Test Positive; Pt O2 Delivery Device Ventilator
[2018-08-06] MEDS ORDERED: SODIUM CHLORIDE 0.9% 1,000 ML IV STA (23:50)
[2018-08-06 23:55] LABS: Apearance,Urine CLEAR (Clear); Bilirubin,Urine Negative (Negative); Blood, Urine Negative (Negative); Glucose,Urine (UA) Negative (Negative); Ketones,Urine 5 mg/dL (Negative); Mucus,Urine Occasional /LPF (Occasional); Nitrite,Urine Negative (Negative); Protein,Urine 30 MG/DL; RBC,Urine 4 /HPF (0-4); Urine Color Yellow (Yellow); Urine Specific Gravity 1.018 (1.001-1.035); Urine Urobilinogen < 2.0 EU/DL (0.2-1.0); WBC,Urine 1 /HPF (0-6)
[2018-08-07] MEDS ORDERED: ALBUTEROL/IPRATROPIUM 3 ML NEB RESP TX PRN (00:33)
[2018-08-07] MEDS ORDERED: SODIUM BICARB INJ 50 MEQ in SODIUM CHLORIDE 0.9% 1,000 ML IV SCH (02:30)
[2018-08-07 03:34] LABS: ABG Base Excess -4.5 MMOL/L (-2.5-2.5); ABG HCO3 20.7 MMOL/L (20-26); ABG Oxygen Saturation 98.9 % (95-100); ABG PCO2 34.4 MM HG (35-48); ABG PH 7.372 (7.35-7.45); ABG TCO2 17.4 MMOL/L (23-27); Allen Test Positive; Pt O2 Delivery Device Ventilator
[2018-08-07] MEDS: SODIUM BICARB INJ 50 MEQ in SODIUM CHLORIDE 0.45% 1,000 ML IV SCH ×3 (03:50→21:04)
[2018-08-07] MEDS: PROPOFOL 1,000 MG/100 ML BOTTLE IV SCH ×5 (04:10→20:59)
[2018-08-07 05:29] LABS: Basophils % 0.4 % (0.0-0.8); Eosinophils % 0.4 % (0.00-10.9); Hematocrit 38.8 VOL% (35.7-47.0); Immature Granulocytes % 0.4 %; Immature Granulocytes Absolute 0.02 #; Lymphocytes # 0.5 10*3/uL (1.4-4.0); Lymphocytes % 10.1 % (21.3-54.2); Mean Corpuscular HGB Conc 30.9 GM/DL (32-36); Mean Corpuscular Hemoglobin 29 PG (27-34); Mean Corpuscular Volume 92.6 FL (87-102); Mean Platelet Volume 10.4 FL (9.6-12.0); Monocytes # 0.2 10*3/uL (0.11-0.8); Monocytes % 4.2 % (1.7-12.7); Neutrophils # 4.2 10*3/uL (1.4-7.4); Neutrophils % 84.5 % (38.7-73.9); Platelet Count 175 T/CUMM (130-400); Red Blood Count 4.19 MC/CUMM (3.8-5.5); Red Cell Distribution Width 17.2 % (9.3-17.3)
[2018-08-07 05:42] LABS: Calcium 8.4 MG/DL (8.5-10.1); Potassium 3.5 MMOL/L (3.5-5.1)
[2018-08-07 06:09] LABS: Barbiturates Screen,Urine Negative (Negative); Benzodiazepines Screen,Urine Positive (Negative); Cannabinoid Screen,Urine Positive (Negative); Opiate Screen,Urine Negative (Negative); Phencyclidine Screen,Urine Negative (Negative)
[2018-08-07] MEDS ORDERED: MAGNESIUM SULF RIDER 4 GM in PREMIX 1 EACH IV ONE (07:43)
[2018-08-07] MEDS ORDERED: ROCURONIUM 100 MG/10 ML VIAL IV ONE (07:53)
[2018-08-07] MEDS ORDERED: ETOMIDATE 20 MG/10 ML VIAL IV ONE (07:53)
[2018-08-07] MEDS: ENOXAPARIN 40 MG/0.4 ML SYRINGE SUBCUT SCH (08:21)
[2018-08-07] MEDS: PANTOPRAZOLE 40 MG VIAL IV SCH (08:21)
[2018-08-07] MEDS: METOPROLOL TARTRATE 25 MG TABLET PO SCH ×2 (08:21→21:04)
[2018-08-07] MEDS: ZINC OXIDE PASTE 113 GM TUBE TOP SCH ×2 (14:09→21:04)
[2018-08-07] MEDS ORDERED: GLUCAGON 1 MG VIAL IM PRN (15:25)
[2018-08-07] MEDS ORDERED: DEXTROSE 50% 25 GM/50 ML SYRINGE IV PRN (15:25)
[2018-08-07] MEDS: INSULIN REGULAR 100 UNIT/ML SUBCUT SCH (18:10)
[2018-08-08] MEDS: PROPOFOL 1,000 MG/100 ML BOTTLE IV SCH ×9 (00:02→23:15)
[2018-08-08 04:55] LABS: ABG Base Excess 0.9 MMOL/L (-2.5-2.5); ABG HCO3 24.3 MMOL/L (20-26); ABG Oxygen Saturation 97.5 % (95-100); ABG PCO2 34.4 MM HG (35-48); ABG PH 7.467 (7.35-7.45); ABG TCO2 25.4 MMOL/L (23-27)
[2018-08-08] MEDS: INSULIN REGULAR 100 UNIT/ML SUBCUT SCH ×4 (04:57→18:11)
[2018-08-08] MEDS: SODIUM BICARB INJ 50 MEQ in SODIUM CHLORIDE 0.45% 1,000 ML IV SCH ×4 (04:58→22:31)
[2018-08-08 05:37] LABS: Basophils % 0.2 % (0.0-0.8); Eosinophils % 0.2 % (0.00-10.9); Hematocrit 32.5 VOL% (35.7-47.0); Hemoglobin 10.3 GM/DL (12.0-16.0); Immature Granulocytes % 0.2 %; Immature Granulocytes Absolute 0.01 #; Lymphocytes # 0.7 10*3/uL (1.4-4.0); Mean Corpuscular HGB Conc 31.7 GM/DL (32-36); Mean Corpuscular Hemoglobin 29 PG (27-34); Mean Corpuscular Volume 90.8 FL (87-102); Mean Platelet Volume 11.3 FL (9.6-12.0); Monocytes # 0.2 10*3/uL (0.11-0.8); Monocytes % 3.3 % (1.7-12.7); Neutrophils % 84.1 % (38.7-73.9); Platelet Count 139 T/CUMM (130-400); Red Blood Count 3.58 MC/CUMM (3.8-5.5)
[2018-08-08 05:58] LABS: Potassium 3.6 MMOL/L (3.5-5.1)
[2018-08-08 06:02] LABS: Prealbumin 22.3 MG/DL (20-40)
[2018-08-08] MEDS: ZINC OXIDE PASTE 113 GM TUBE TOP SCH ×2 (08:01→22:40)
[2018-08-08] MEDS: PANTOPRAZOLE 40 MG VIAL IV SCH (08:01)
[2018-08-08] MEDS: ENOXAPARIN 40 MG/0.4 ML SYRINGE SUBCUT SCH (08:01)
[2018-08-08] MEDS: METOPROLOL TARTRATE 25 MG TABLET PO SCH ×2 (08:01→22:41)
[2018-08-08 18:05] VITALS: BP 116/73
[2018-08-09] MEDS: PROPOFOL 1,000 MG/100 ML BOTTLE IV SCH ×7 (02:01→18:31)
[2018-08-09 04:38] LABS: ABG Base Excess 5.2 MMOL/L (-2.5-2.5); ABG HCO3 29.1 MMOL/L (20-26); ABG PCO2 38.4 MM HG (35-48); ABG PH 7.484 (7.35-7.45); ABG PO2 68.6 MM HG (80-95); ABG TCO2 26.3 MMOL/L (23-27); Allen Test Positive; Pt O2 Delivery Device Ventilator
[2018-08-09 05:49] LABS: Albumin 2.5 G/DL (3.4-5.0); Bilirubin,Total 0.9 MG/DL (0.2-1.0); Calcium 7.6 MG/DL (8.5-10.1); Osmolality,Calculated 288.8 MOS/KG (273-304); Potassium 3.5 MMOL/L (3.5-5.1); Total Protein 5.8 G/DL (6.4-8.3)
[2018-08-09] MEDS: INSULIN REGULAR 100 UNIT/ML SUBCUT SCH ×4 (05:51→18:13)
[2018-08-09] MEDS: SODIUM BICARB INJ 50 MEQ in SODIUM CHLORIDE 0.45% 1,000 ML IV SCH (06:34)
[2018-08-09] MEDS ORDERED: FUROSEMIDE 40 MG/4 ML VIAL IV ONE (07:17)
[2018-08-09] MEDS: ENOXAPARIN 40 MG/0.4 ML SYRINGE SUBCUT SCH (10:08)
[2018-08-09] MEDS: PANTOPRAZOLE 40 MG VIAL IV SCH (10:08)
[2018-08-09] MEDS: METOPROLOL TARTRATE 25 MG TABLET PO SCH ×2 (10:10→21:12)
[2018-08-09] MEDS: ZINC OXIDE PASTE 113 GM TUBE TOP SCH ×2 (10:10→21:11)
[2018-08-09 11:00] LABS: Allen Test Positive; Pt O2 Delivery Device CPAP
[2018-08-09 11:01] LABS: ABG HCO3 29.7 MMOL/L (20-26); ABG Oxygen Saturation 89.6 % (95-100); ABG PCO2 43.1 MM HG (35-48); ABG PH 7.458 (7.35-7.45); ABG TCO2 27.7 MMOL/L (23-27)
[2018-08-09] MEDS: methylPREDNISolone SOD SUC 40 MG/1 ML VIAL IV SCH ×2 (13:50→19:46)
[2018-08-09] MEDS: ALBUTEROL/IPRATROPIUM 3 ML NEB RESP TX SCH ×2 (14:15→19:22)
[2018-08-10] MEDS: INSULIN REGULAR 100 UNIT/ML SUBCUT SCH ×3 (00:18→12:27)
[2018-08-10] MEDS: PROPOFOL 1,000 MG/100 ML BOTTLE IV SCH ×4 (00:19→08:37)
[2018-08-10] MEDS: ALBUTEROL/IPRATROPIUM 3 ML NEB RESP TX SCH ×4 (01:16→19:28)
[2018-08-10 03:43] LABS: Allen Test Positive; Pt O2 Delivery Device Ventilator
[2018-08-10 03:44] LABS: ABG Base Excess 6.8 MMOL/L (-2.5-2.5); ABG HCO3 30.6 MMOL/L (20-26); ABG Oxygen Saturation 94.7 % (95-100); ABG PCO2 40.7 MM HG (35-48); ABG PH 7.487 (7.35-7.45); ABG PO2 73.7 MM HG (80-95)
[2018-08-10] MEDS: methylPREDNISolone SOD SUC 40 MG/1 ML VIAL IV SCH ×3 (03:45→21:12)
[2018-08-10 05:14] LABS: Hemoglobin 9.5 GM/DL (12.0-16.0); Immature Granulocytes % 0.4 %; Immature Granulocytes Absolute 0.02 #; Lymphocytes # 0.6 10*3/uL (1.4-4.0); Lymphocytes % 13.3 % (21.3-54.2); Mean Corpuscular HGB Conc 30.6 GM/DL (32-36); Mean Corpuscular Hemoglobin 28 PG (27-34); Mean Corpuscular Volume 92.5 FL (87-102); Mean Platelet Volume 11.7 FL (9.6-12.0); Monocytes # 0.2 10*3/uL (0.11-0.8); Monocytes % 3.4 % (1.7-12.7); Neutrophils # 3.9 10*3/uL (1.4-7.4); Neutrophils % 82.9 % (38.7-73.9); Platelet Count 137 T/CUMM (130-400); Red Blood Count 3.35 MC/CUMM (3.8-5.5); Red Cell Distribution Width 16.8 % (9.3-17.3); White Blood Count 4.7 T/CUMM (4-12)
[2018-08-10 05:31] LABS: Albumin 2.8 G/DL (3.4-5.0); Bilirubin,Total 1.5 MG/DL (0.2-1.0); Calcium 8.2 MG/DL (8.5-10.1); Osmolality,Calculated 298.6 MOS/KG (273-304); Potassium 3.4 MMOL/L (3.5-5.1); Total Protein 6.9 G/DL (6.4-8.3)
[2018-08-10] MEDS: PANTOPRAZOLE 40 MG VIAL IV SCH (08:31)
[2018-08-10] MEDS: METOPROLOL TARTRATE 25 MG TABLET PO SCH ×2 (08:31→21:14)
[2018-08-10] MEDS: ENOXAPARIN 40 MG/0.4 ML SYRINGE SUBCUT SCH (08:31)
[2018-08-10] MEDS: ZINC OXIDE PASTE 113 GM TUBE TOP SCH ×2 (08:32→21:14)
[2018-08-10] MEDS ORDERED: LORazepam 2 MG/1 ML VIAL IV ONE (09:07)
[2018-08-10] MEDS: DEXMEDETOMIDINE 200 MCG in SODIUM CHLORIDE 0.9% 48 ML IV PRN ×2 (10:11→22:06)
[2018-08-10 11:48] LABS: ABG HCO3 28.7 MMOL/L (20-26); ABG Oxygen Saturation 87.4 % (95-100); ABG PCO2 42.8 MM HG (35-48); ABG PH 7.448 (7.35-7.45); ABG PO2 55.8 MM HG (80-95); ABG TCO2 26.6 MMOL/L (23-27); Allen Test Positive; Pt O2 Delivery Device Ventilator
[2018-08-10] MEDS: LORazepam 2 MG/1 ML VIAL IV PRN ×3 (12:04→21:15)
[2018-08-10] MEDS: HALOPERIDOL 5 MG/ML AMP IM PRN (15:15)
[2018-08-11] MEDS: HALOPERIDOL 5 MG/ML AMP IM PRN (01:15)
[2018-08-11] MEDS: ALBUTEROL/IPRATROPIUM 3 ML NEB RESP TX SCH ×4 (01:47→18:49)
[2018-08-11] MEDS: methylPREDNISolone SOD SUC 40 MG/1 ML VIAL IV SCH (04:09)
[2018-08-11] MEDS: DEXMEDETOMIDINE 200 MCG in SODIUM CHLORIDE 0.9% 48 ML IV PRN (04:11)
[2018-08-11 05:12] LABS: Basophils % 0.1 % (0.0-0.8); Hematocrit 32.1 VOL% (35.7-47.0); Immature Granulocytes % 0.7 %; Immature Granulocytes Absolute 0.07 #; Lymphocytes # 1.1 10*3/uL (1.4-4.0); Lymphocytes % 10.8 % (21.3-54.2); Mean Corpuscular HGB Conc 31.2 GM/DL (32-36); Mean Corpuscular Hemoglobin 29 PG (27-34); Mean Corpuscular Volume 92.2 FL (87-102); Monocytes # 0.3 10*3/uL (0.11-0.8); Monocytes % 2.5 % (1.7-12.7); Neutrophils # 8.8 10*3/uL (1.4-7.4); Neutrophils % 85.9 % (38.7-73.9); Platelet Count 192 T/CUMM (130-400); Red Blood Count 3.48 MC/CUMM (3.8-5.5); Red Cell Distribution Width 16.4 % (9.3-17.3); White Blood Count 10.3 T/CUMM (4-12)
[2018-08-11 05:29] LABS: Albumin 3.1 G/DL (3.4-5.0); Bilirubin,Total 1.2 MG/DL (0.2-1.0); Calcium 8.4 MG/DL (8.5-10.1); Potassium 3.4 MMOL/L (3.5-5.1); Total Protein 7.3 G/DL (6.4-8.3)
[2018-08-11] MEDS: QUEtiapine 25 MG TABLET PO SCH ×2 (08:49→21:43)
[2018-08-11] MEDS: DULoxetine 30 MG CAPSULE PO SCH (08:49)
[2018-08-11] MEDS: PANTOPRAZOLE 40 MG TABLET PO SCH (08:49)
[2018-08-11] MEDS: buPROPion SR 150 MG TABLET PO SCH ×2 (08:49→21:43)
[2018-08-11] MEDS: busPIRone 10 MG TABLET PO SCH ×3 (08:49→21:42)
[2018-08-11] MEDS: NICOTINE 21 MG/24 HR PATCH TRANSDERM SCH (08:50)
[2018-08-11] MEDS: predniSONE 10 MG TABLET PO SCH ×2 (08:50→21:43)
[2018-08-11] MEDS: METOPROLOL TARTRATE 25 MG TABLET PO SCH ×2 (08:50→21:43)
[2018-08-11] MEDS: ENOXAPARIN 40 MG/0.4 ML SYRINGE SUBCUT SCH (08:51)
[2018-08-11] MEDS: PROPOFOL 1,000 MG/100 ML BOTTLE IV SCH (12:28)
[2018-08-11] MEDS: ONDANSETRON 4 MG/2 ML VIAL IV PRN ×2 (14:15→19:30)
[2018-08-11] MEDS: POTASSIUM CHLORIDE 20 MEQ TABLET PO SCH ×3 (14:17→19:29)
[2018-08-11] MEDS: traMADol 50 MG TABLET PO PRN (15:05)
[2018-08-11] MEDS: ZINC OXIDE PASTE 113 GM TUBE TOP SCH ×2 (17:12→21:42)
[2018-08-11] MEDS ORDERED: DIVALPROEX ER 500 MG TABLET PO SCH (21:00)
[2018-08-12] MEDS: ALBUTEROL/IPRATROPIUM 3 ML NEB RESP TX SCH ×3 (00:38→12:27)
[2018-08-12 05:06] LABS: Basophils % 0.1 % (0.0-0.8); Eosinophils % 0.1 % (0.00-10.9); Hematocrit 31.9 VOL% (35.7-47.0); Hemoglobin 9.8 GM/DL (12.0-16.0); Immature Granulocytes % 0.6 %; Immature Granulocytes Absolute 0.04 #; Lymphocytes # 1.3 10*3/uL (1.4-4.0); Lymphocytes % 19.2 % (21.3-54.2); Mean Corpuscular HGB Conc 30.7 GM/DL (32-36); Mean Corpuscular Hemoglobin 28 PG (27-34); Mean Corpuscular Volume 91.7 FL (87-102); Mean Platelet Volume 10.7 FL (9.6-12.0); Monocytes # 0.2 10*3/uL (0.11-0.8); Monocytes % 3.3 % (1.7-12.7); Neutrophils # 5.2 10*3/uL (1.4-7.4); Neutrophils % 76.7 % (38.7-73.9); Platelet Count 220 T/CUMM (130-400); Red Blood Count 3.48 MC/CUMM (3.8-5.5); Red Cell Distribution Width 16.6 % (9.3-17.3); White Blood Count 6.7 T/CUMM (4-12)
[2018-08-12 05:35] LABS: Alanine Aminotransferase 166 U/L (13-56); Albumin 2.8 G/DL (3.4-5.0); Alkaline Phosphatase 161 U/L (45-117); Aspartate Amino Transferase 61 U/L (0-37); Bilirubin,Total < 0.39 MG/DL (0.2-1.0); Blood Urea Nitrogen 25 MG/DL (7-18); Calcium 8.4 MG/DL (8.5-10.1); Glucose 94 MG/DL (74-106); Osmolality,Calculated 289.8 MOS/KG (273-304); Potassium 4.3 MMOL/L (3.5-5.1); Sodium 144 MMOL/L (136-145); Total Protein 7.1 G/DL (6.4-8.3)
[2018-08-12] MEDS: traMADol 50 MG TABLET PO PRN (05:55)
[2018-08-12] MEDS ORDERED: LEVOTHYROXINE 112 MCG TABLET PO SCH (07:00)
[2018-08-12] MEDS: DULoxetine 30 MG CAPSULE PO SCH (08:55)
[2018-08-12] MEDS: QUEtiapine 25 MG TABLET PO SCH (08:55)
[2018-08-12] MEDS: buPROPion SR 150 MG TABLET PO SCH (08:56)
[2018-08-12] MEDS: busPIRone 10 MG TABLET PO SCH ×2 (08:57→15:58)
[2018-08-12] MEDS: METOPROLOL TARTRATE 25 MG TABLET PO SCH (08:57)
[2018-08-12] MEDS: predniSONE 10 MG TABLET PO SCH (08:57)
[2018-08-12] MEDS: PANTOPRAZOLE 40 MG TABLET PO SCH (08:57)
[2018-08-12] MEDS: ENOXAPARIN 40 MG/0.4 ML SYRINGE SUBCUT SCH (08:58)
[2018-08-12] MEDS: NICOTINE 21 MG/24 HR PATCH TRANSDERM SCH (08:58)
[2018-08-12] MEDS: ZINC OXIDE PASTE 113 GM TUBE TOP SCH (11:51)
== END 2018-08-12 18:10 | DRG 917 ==
LOC: EDBD → EDUNIT# → N.ED 18:57 → SUATTDRO 08-07 00:27 → N.EDINP 08-07 00:27 → N.ICU 08-07 01:51
PROVIDERS: ADMIT Internal Medicine; ATTEND Internal Medicine Nephrology